=== PATIENT | female | born 1975 | race Caucasian/White ===

== ENCOUNTER → 2018-01-21 | Outpatient (CLI) | payer OTHER ==
--- NOTE | 2018-01-21 15:18 | Diagnostic Imaging Report ---
EXAMINATION: CHEST 2 VIEWS INDICATION: \[id number] \S\[id number] \S\LATENT TUBERCULOSIS COMPARISON: None FINDINGS: PA and lateral views TUBES and LINES: None. LUNGS: Lungs are well inflated. Lungs are clear. Tiny dense nodules in the perihilar region may represent calcified granulomas. There is no evidence of pneumonia or pulmonary edema. PLEURA: No pleural effusion or pneumothorax. HEART AND MEDIASTINUM: The cardiomediastinal silhouette is unremarkable. BONES AND SOFT TISSUES: Degenerative changes of the thoracic spine. Soft tissues are unremarkable. UPPER ABDOMEN: No free air under the diaphragm. IMPRESSION: No acute thoracic abnormality. Specifically, no radiographic findings to suggest active TB. Signed by: Dr. Kristen Hunter M.D. on 01/21/2018 3:14 PM
== END ==
LOC: RAD 10:37
PROVIDERS: ATTEND Family Medicine
DX: R76.11 Nonspecific reaction to tuberculin skin test without active tuberculosis (principal)
CPT/HCPCS: 71046

== ENCOUNTER → 2018-12-09 | Outpatient (CLI) | payer OTHER ==
[~2018-12-09] MED LIST: BIOTIN5 M1 PO; IRON PO; LEVOTHYROXINE50 MCG PO; LEXAPRO10 MG PO; MULTIVITAMIN PO; PANTOPRAZOLE SO40 MG PO; VITAMIN C PO; VITAMIN D3400 UNI1 PO; [UNRECOGNIZED DRUG - OTHER] PO; [UNRECOGNIZED DRUG - OTHER] PO
--- NOTE | 2018-12-09 11:42 | Diagnostic Imaging Report ---
EXAM: Right upper quadrant abdominal ultrasound INDICATION: Right upper quadrant pain COMPARISON: None. TECHNIQUE: Transverse and longitudinal images of the right upper quadrant abdomen were obtained FINDINGS: Liver: Size: 16.2 cm in the right midclavicular line, mildly enlarged Appearance: Normal echogenicity, smooth contour Mass: No focal masses Gallbladder: No gallbladder distension, pericholecystic fluid, wall thickening, stone, or reported sonographic Mueller's sign. Minimal amount of sludge in the gallbladder. Gallbladder wall measures 0.3 cm. Bile Ducts: Intrahepatic Ducts: No dilatation Extrahepatic Ducts: Common bile duct measures 0.3cm, no dilatation Pancreas: Visualized portions of the pancreatic head, neck and proximal body are normal. Kidney: The right kidney measures 9.8 cm without evidence of hydronephrosis or stone. Vessels: Aorta: Visualized portions are normal Inferior Vena Cava: Visualized portions are normal Main Portal Vein: 1.1 cm, normal size with hepatopetal flow. Free Fluid: No ascites or pleural effusion IMPRESSION: Minimal sludge in the gallbladder. No sonographic evidence of cholelithiasis or cholecystitis. Mild hepatomegaly. Signed by: Himanshu Tompkins MD on 12/09/2018 11:39 AM
== END ==
LOC: US 09:03
PROVIDERS: ATTEND Surgery
DX: R10.11 Right upper quadrant pain (principal); R16.0 Hepatomegaly, not elsewhere classified
CPT/HCPCS: 76705

== ENCOUNTER → 2018-12-16 | Outpatient (CLI) | payer OTHER ==
--- NOTE | 2018-12-16 17:07 | Diagnostic Imaging Report ---
Hepatobiliary Scan with Gallbladder Ejection Fraction Clinical information: Chronic abdominal pain Technique: Following intravenous administration of 7.0 millicuries of Tc-99m mebrofenin, dynamic images of the abdomen in the anterior projection were obtained through 30 minutes. Sincalide (CCK analog) 2.0 micrograms was administered intravenously over 30 minutes with additional imaging for determination of gallbladder ejection fraction. Discussion: Perfusion of the liver is normal. Extraction of tracer by the liver parenchyma is normal. Tracer appears promptly within the biliary tract. The gallbladder begins to fill by 8 minutes post injection of tracer and fills adequately. Tracer is seen in the small bowel by 16 minutes. The gallbladder ejection fraction with sincalide is 15% (normal greater than 40%). Impression: 1. Filling of the gallbladder excludes acute cystic duct obstruction/acute cholecystitis. 2. The decreased gallbladder ejection fraction of 15% supports the clinical diagnosis of chronic cholecystitis/gallbladder dyskinesia. Signed by: Dr. May Desai M.D. on 12/16/2018 5:04 PM
== END ==
LOC: NM 13:37
PROVIDERS: ATTEND Surgery
DX: R10.9 Unspecified abdominal pain (principal)
CPT/HCPCS: 78227; A9537

== ENCOUNTER → 2019-01-06 | Day surgery (SDC) | payer OTHER ==
[2018-12-30 15:19] LABS: BASOPHILS # (AUTO) 0.1 (0.0-0.1); BASOPHILS % 0.7 % (0.0-1.0); EOSINOPHILS # (AUTO) 0.1 (0.0-0.4); EOSINOPHILS % 1.7 % (0.0-6.0); HEMATOCRIT 36.9 % (34.2-44.1); HEMOGLOBIN 12.4 g/dL (12.0-16.0); LYMPHOCYTES # (AUTO) 2.2 (1.0-3.2); LYMPHOCYTES % 31.5 % (18.0-39.1); MEAN CORPUSCULAR HGB CONC 33.6 g/dL (31-35); MEAN CORPUSCULAR VOLUME 95.3 fL (81-99); MONOCYTES # (AUTO) 0.5 (0.2-0.8); MONOCYTES % 6.8 % (4.4-11.3); NEUTROPHILS # (AUTO) 4.2 (2.1-6.9); NEUTROPHILS % 59.2 % (38.7-80.0); PLATELET COUNT 263 x10e3/uL (140-360); RED BLOOD COUNT 3.87 x10e6/uL (3.6-5.1); RED CELL DISTRIBUTION WIDTH 12.3 % (11.7-14.4)
[2018-12-30 15:38] LABS: ALANINE AMINOTRANSFERASE 22 IU/L (0-55); ALBUMIN 4.1 g/dL (3.5-5.0); ALBUMIN/GLOBULIN RATIO 1.4 (0.8-2.0); ALKALINE PHOSPHATASE 37 IU/L (40-150); ANION GAP 10.8 mmol/L (8-16); BLOOD UREA NITROGEN 12 mg/dL (7-26); BUN/CREATININE RATIO 14 (6-25); CALCIUM 9.5 mg/dL (8.4-10.2); CARBON DIOXIDE 28 mmol/L (22-29); CHLORIDE 102 mmol/L (98-107); CREATININE, SERUM 0.84 mg/dL (0.57-1.11); EST GLOMERULAR FILTRATION RATE > 60 ML/MIN (60-); GLUCOSE 121 mg/dL (74-118); POTASSIUM 4.8 mmol/L (3.5-5.1); SODIUM 136 mmol/L (136-145)
[~2019-01-06] MED LIST changes: +ACETAMINOPHEN 1000 MG/100 ML IV ONE; +BUPIVACAINE HCL 0.5% INJ 30 ML VIAL INJ ONE; +CEFAZOLIN SOD 1 GM VIAL ONE; +DEXAMETHASONE SOD PHOS INJ 4 MG/ML VIAL ONE; +FENTANYL CITRATE/PF 100MCG/2 ML INJ ONE; +GLYCOPYRROLATE INJ 1MG/ 5 ML SYR ONE; +KETOROLAC TROMETHAMINE 30 MG/ML VIAL ONE; +LIDOCAINE HCL 2% LOCAL INJ 5 ML SDV VIAL INJ ONE; +METOCLOPRAMIDE HCL 10 MG/2ML VIAL ONE; +MIDAZOLAM HCL 2 MG/2 ML VIAL ONE; +NEOSTIGMINE 5 MG/5ML SYR ONE; +ONDANSETRON HCL INJ 2MG/ML 2ML 2 MG/ML VIAL ONE; +PROPOFOL IV EMULSION 10 MG/ML 20 ML VIAL ONE; +ROCURONIUM BROMIDE 10 MG/ML 5ML VIAL ONE; +SCOPOLAMINE 1.5 MG PATCH ONE; +SEVOFLURANE INHAL SOLN 250 ML PEN BTL ONE
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
--- OUTSIDE RECORDS SUMMARY | 2019-01-06 10:32 | XMS REPORT | Continuity of Care Document ---
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 Stop date: 05/15/16 8:55:00 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 NOT COMPATIBLE WITH D5W. Stable in refrigerator for 24 hours MEDICATION WASTE Product Size: 1000 mg Product Wasted: ___ mg No Longer Active 05/15/2016 [facility] FLUoxetine 20 mg oral tablet 20 mg=1 tab, PO, Daily, # 1 tab, 3 Refill(s), other Active 03/15/2016 [facility] Amlodipine 10 MG Oral Tablet amlodipine 10 mg tablet TAKE 1 TABLET BY MOUTH EVERY DAY Active [facility] Cyclobenzaprine hydrochloride 5 MG Oral Tablet cyclobenzaprine 5 mg tablet Take 1 tablet 3 times a day by oral route as needed for 5 days. Will cause drowsiness Active [facility] Fluoxetine 20 MG Oral Capsule fluoxetine 20 mg capsule TAKE 1 CAPSULE BY MOUTH EVERY DAY Active [facility] Fluoxetine 20 MG Oral Tablet fluoxetine 20 mg tablet TAKE 2 TABLETS BY MOUTH EVERY DAY Active [facility] Levothyroxine Sodium 0.15 MG Oral Tablet levothyroxine 150 mcg tablet TAKE 1 TABLET BY MOUTH EVERY DAY Active [facility] Levothyroxine Sodium 0.175 MG Oral Tablet levothyroxine 175 mcg tablet Active [facility] Medrol (Dariel) 4 mg tablets in a dose pack Medrol (Dariel) 4 mg tablets in a dose pack Take 1 dose pk by oral route with meals. Active [facility] pantoprazole 40 MG Delayed Release Oral Tablet pantoprazole 40 mg tablet,delayed release Active [facility] tramadol hydrochloride 50 MG Oral Tablet tramadol 50 mg tablet Active [facility] Ursodiol 300 MG Oral Capsule ursodiol 300 mg capsule Active [facility] 24 HR venlafaxine 75 MG Extended Release Oral Capsule venlafaxine ER 75 mg capsule,extended release 24 hr Active [facility] Allergies, Adverse Reactions, Alerts Substance Category Reaction Severity Reaction type Status Date Reported Comments Source No Known Medication Allergies Assertion Drug allergy Medical Group Immunizations No Data Provided for This Section Results Order Name Results Value Reference Range Date Interpretation Comments Source HEMATOLOGY POC Hematocrit 36.0 36.0 - 48.0 02/20/2017 [facility] HEMATOLOGY POC Potassium 4.9 3.5 - 5.1 02/20/2017 [facility] HEMATOLOGY POC Hemoglobin 12.2 12.0 - 16.0 02/20/2017 [facility] HEMATOLOGY POC Sodium 140 135 - 145 02/20/2017 [facility] HEMATOLOGY POC Glucose 87 70 - 99 02/20/2017 [facility] CHEM PANEL Globulin 2.4 2.7 - 4.2 12/06/2016 [facility] CHEM PANEL A/G Ratio 1.3 0.7 - 1.6 12/06/2016 [facility] CHEM PANEL AGAP 13.0 10.0 - 20.0 12/06/2016 [facility] CHEM PANEL B/C Ratio 8 6 - 25 12/06/2016 [facility] CHEM PANEL Bili Total 1.7 0.2 - 1.3 12/06/2016 [facility] CHEM PANEL Total Protein 5.5 6.4 - 8.4 12/06/2016 [facility] CHEM PANEL Alk Phos 44 39 - 136 12/06/2016 [facility] CHEM PANEL Chloride Lvl 110 95 - 109 12/06/2016 [facility] CHEM PANEL Calcium Lvl 8.0 8.5 - 10.5 12/06/2016 [facility] CHEM PANEL Potassium Lvl 4.0 3.5 - 5.1 12/06/2016 [facility] CHEM PANEL Sodium Lvl 145 135 - 145 12/06/2016 [facility] CHEM PANEL CO2 26 24 - 32 12/06/2016 [facility] CHEM PANEL BUN 6 7 - 22 12/06/2016 [facility] CHEM PANEL Albumin Lvl 3.1 3.5 - 5.0 12/06/2016 [facility] CHEM PANEL eGFR 93 12/06/2016 Result Comment: The eGFR is calculated using the CKD-EPI formula. In most young, healthy individuals the eGFR will be >90 mL/min/1.73m2. The eGFR declines with age. An eGFR of 60-89 may be normal in some populations, particularly the elderly, for whom the CKD-EPI formula has not been extensively validated. Use of the eGFR is not recommended in the following populations:

Individuals with unstable creatinine concentrations, including patients and those with serious co-morbid conditions.

Patients with extremes in muscle mass or diet.

The data above are obtained from the National Kidney Disease Education Program (NKDEP) which additionally recommends that when the eGFR is used in patients with extremes of body mass index for purposes of drug dosing, the eGFR should be multiplied by the estimated BMI. [facility] CHEM PANEL Glucose Lvl 93 70 - 99 12/06/2016 [facility] CHEM PANEL AST 10 0 - 37 12/06/2016 [facility] CHEM PANEL ALT 12 0 - 65 12/06/2016 [facility] CHEM PANEL Creatinine Lvl 0.79 0.50 - 1.40 12/06/2016 [facility] CHEM PANEL Magnesium Lvl 1.8 1.8 - 2.4 12/06/2016 [facility] CHEM PANEL Bili Direct 0.3 0.0 - 0.3 12/06/2016 [facility] ELECTROLYTES AGAP 13.0 10.0 - 20.0 12/06/2016 [facility] ELECTROLYTES Potassium Lvl 4.0 3.5 - 5.1 12/06/2016 [facility] ELECTROLYTES Calcium Lvl 8.0 8.5 - 10.5 12/06/2016 [facility] ELECTROLYTES CO2 26 24 - 32 12/06/2016 [facility] ELECTROLYTES BUN 6 7 - 22 12/06/2016 [facility] ELECTROLYTES Sodium Lvl 145 135 - 145 12/06/2016 [facility] ELECTROLYTES Chloride Lvl 110 95 - 109 12/06/2016 [facility] ELECTROLYTES eGFR 93 12/06/2016 Result Comment: The eGFR is calculated using the CKD-EPI formula. In most young, healthy individuals the eGFR will be >90 mL/min/1.73m2. The eGFR declines with age. An eGFR of 60-89 may be normal in some populations, particularly the elderly, for whom the CKD-EPI formula has not been extensively validated. Use of the eGFR is not recommended in the following populations:

Individuals with unstable creatinine concentrations, including patients and those with serious co-morbid conditions.

Patients with extremes in muscle mass or diet.

The data above are obtained from the National Kidney Disease Education Program (NKDEP) which additionally recommends that when the eGFR is used in patients with extremes of body mass index for purposes of drug dosing, the eGFR should be multiplied by the estimated BMI. [facility] ELECTROLYTES Glucose Lvl 93 70 - 99 12/06/2016 [facility] ELECTROLYTES Creatinine Lvl 0.79 0.50 - 1.40 12/06/2016 [facility] HEMATOLOGY WBC 5.5 3.7 - 10.4 12/06/2016 [facility] HEMATOLOGY MCH 31.4 27.0 - 31.0 12/06/2016 [facility] HEMATOLOGY RBC 3.19 4.20 - 5.40 12/06/2016 [facility] HEMATOLOGY MCV 88.6 80.0 - 98.0 12/06/2016 [facility] HEMATOLOGY Hct 28.2 36.0 - 48.0 12/06/2016 [facility] HEMATOLOGY Hgb 10.0 12.0 - 16.0 12/06/2016 [facility] MCHC 35.4 32.0 - 36.0 12/06/2016 [facility] HEMATOLOGY MPV 10.0 7.4 - 10.4 12/06/2016 [facility] HEMATOLOGY Platelet 190 133 - 450 12/06/2016 [facility] HEMATOLOGY RDW 13.9 11.5 - 14.5 12/06/2016 [facility] HEMATOLOGY Eosinophils 2.5 0.0 - 4.0 12/06/2016 [facility] Monocytes 5.8 2.0 - 12.0 12/06/2016 [facility] Lymphocytes 35.8 20.0 - 40.0 12/06/2016 [facility] Segs 54.8 45.0 - 75.0 12/06/2016 [facility] Basophils 1.1 0.0 - 1.0 12/06/2016 [facility] HEMATOLOGY Eosinophils # 0.1 0.0 - 0.5 12/06/2016 [facility] HEMATOLOGY Monocytes # 0.3 0.0 - 0.8 12/06/2016 [facility] Lymphocytes # 2.0 1.0 - 5.5 12/06/2016 [facility] HEMATOLOGY Basophils # 0.1 0.0 - 0.2 12/06/2016 [facility] Segs-Bands # 3.0 1.5 - 8.1 12/06/2016 [facility] HEMATOLOGY Platelet 177 133 - 450 12/06/2016 [facility] HEMATOLOGY MPV 10.1 7.4 - 10.4 12/06/2016 [facility] MCHC 34.3 32.0 - 36.0 12/06/2016 [facility] HEMATOLOGY RDW 14.0 11.5 - 14.5 12/06/2016 [facility] HEMATOLOGY MCH 30.4 27.0 - 31.0 12/06/2016 [facility] HEMATOLOGY MCV 88.4 80.0 - 98.0 12/06/2016 [facility] HEMATOLOGY Hgb 9.6 12.0 - 16.0 12/06/2016 [facility] HEMATOLOGY Hct 27.9 36.0 - 48.0 12/06/2016 [facility] HEMATOLOGY WBC 6.2 3.7 - 10.4 12/06/2016 [facility] HEMATOLOGY RBC 3.15 4.20 - 5.40 12/06/2016 [facility] HEMATOLOGY Monocytes # 0.4 0.0 - 0.8 12/06/2016 [facility] HEMATOLOGY Segs-Bands # 2.9 1.5 - 8.1 12/06/2016 [facility] HEMATOLOGY Lymphocytes # 2.8 1.0 - 5.5 12/06/2016 [facility] HEMATOLOGY Eosinophils 2.6 0.0 - 4.0 12/06/2016 [facility] HEMATOLOGY Basophils 0.9 0.0 - 1.0 12/06/2016 [facility] HEMATOLOGY Monocytes 6.3 2.0 - 12.0 12/06/2016 [facility] Eosinophils # 0.2 0.0 - 0.5 12/06/2016 [facility] Basophils # 0.1 0.0 - 0.2 12/06/2016 [facility] HEMATOLOGY Segs 45.6 45.0 - 75.0 12/06/2016 [facility] Lymphocytes 44.6 20.0 - 40.0 12/06/2016 [facility] HEMATOLOGY Hgb 9.6 12.0 - 16.0 12/05/2016 [facility] HEMATOLOGY Hct 27.8 36.0 - 48.0 12/05/2016 [facility] CHEM PANEL Magnesium Lvl 2.1 1.8 - 2.4 12/05/2016 [facility] BLOOD BANK RESULTS Antibody Scrn Negative (12/05/16 1:44 AM) 12/05/2016 [facility] BLOOD BANK RESULTS ABO/Rh A POS 12/05/2016 [facility] BLOOD BANK RESULTS RBC product Product available 1 (12/05/16 1:26 AM) 12/05/2016 Result Comment: 12/05/2016 02:36 [id number]
NOTIFIED GLENDY HAIDER, RBC READY [facility] CHEM PANEL eGFR 116 12/05/2016 Result Comment: The eGFR is calculated using the CKD-EPI formula. In most young, healthy individuals the eGFR will be >90 mL/min/1.73m2. The eGFR declines with age. An eGFR of 60-89 may be normal in some populations, particularly the elderly, for whom the CKD-EPI formula has not been extensively validated. Use of the eGFR is not recommended in the following populations:

Individuals with unstable creatinine concentrations, including patients and those with serious co-morbid conditions.

Patients with extremes in muscle mass or diet.

The data above are obtained from the National Kidney Disease Education Program (NKDEP) which additionally recommends that when the eGFR is used in patients with extremes of body mass index for purposes of drug dosing, the eGFR should be multiplied by the estimated BMI. [facility] CHEM PANEL Glucose Lvl 85 70 - 99 12/05/2016 [facility] CHEM PANEL Sodium Lvl 147 135 - 145 12/05/2016 [facility] CHEM PANEL Potassium Lvl 3.3 3.5 - 5.1 12/05/2016 [facility] CHEM PANEL BUN 14 7 - 22 12/05/2016 [facility] CHEM PANEL Creatinine Lvl 0.56 0.50 - 1.40 12/05/2016 [facility] CHEM PANEL Calcium Lvl 6.6 8.5 - 10.5 12/05/2016 Result Comment: Critical Result(s) called to siva at 12/05/2016 01:39 by pks. Read back OK. [facility] CHEM PANEL Chloride Lvl 117 95 - 109 12/05/2016 [facility] CHEM PANEL CO2 22 24 - 32 12/05/2016 [facility] CHEM PANEL AGAP 11.3 10.0 - 20.0 12/05/2016 [facility] HEMATOLOGY Platelet 153 133 - 450 12/05/2016 [facility] HEMATOLOGY MPV 10.2 7.4 - 10.4 12/05/2016 [facility] HEMATOLOGY RDW 13.7 11.5 - 14.5 12/05/2016 [facility] HEMATOLOGY MCH 30.8 27.0 - 31.0 12/05/2016 [facility] HEMATOLOGY MCHC 34.4 32.0 - 36.0 12/05/2016 [facility] HEMATOLOGY MCV 89.5 80.0 - 98.0 12/05/2016 [facility] HEMATOLOGY RBC 2.31 4.20 - 5.40 12/05/2016 [facility] HEMATOLOGY WBC 6.1 3.7 - 10.4 12/05/2016 [facility] HEMATOLOGY Lymphocytes # 2.2 1.0 - 5.5 12/05/2016 [facility] HEMATOLOGY Monocytes # 0.3 0.0 - 0.8 12/05/2016 [facility] HEMATOLOGY Basophils 0.5 0.0 - 1.0 12/05/2016 [facility] HEMATOLOGY Segs-Bands # 3.4 1.5 - 8.1 12/05/2016 [facility] HEMATOLOGY Eosinophils # 0.1 0.0 - 0.5 12/05/2016 [facility] HEMATOLOGY Monocytes 4.5 2.0 - 12.0 12/05/2016 [facility] HEMATOLOGY Eosinophils 1.6 0.0 - 4.0 12/05/2016 [facility] HEMATOLOGY Segs 56.5 45.0 - 75.0 12/05/2016 [facility] HEMATOLOGY Lymphocytes 36.9 20.0 - 40.0 12/05/2016 [facility] HEMATOLOGY Hgb 8.6 12.0 - 16.0 12/05/2016 [facility] HEMATOLOGY Hct 25.0 36.0 - 48.0 12/05/2016 [facility] BLOOD BANK RESULTS RBC product Product available 1 (12/04/16 11:11 AM) 12/04/2016 Result Comment: 12/04/2016 11:16 MABUNING
Called to DALIA at 12/04/2016 11:16 by CECELIA. [facility] BLOOD BANK RESULTS ABO/Rh A POS 12/04/2016 [facility] BLOOD BANK RESULTS Antibody Scrn Negative (12/04/16 10:15 AM) 12/04/2016 [facility] URINE AND STOOL Occult Bld Stl Positive *ABN* (12/04/16 10:01 AM) Negative 12/04/2016 [facility] CARDIAC ENZYMES CK MB <1.0 0.5 - 3.6 12/04/2016 [facility] CARDIAC ENZYMES Total CK 60 12 - 191 12/04/2016 [facility] CARDIAC ENZYMES Troponin-I <0.02 0.00 - 0.40 12/04/2016 [facility] CARDIAC ENZYMES CK MB Index <1.7 0.0 - 2.5 12/04/2016 [facility] CHEM PANEL eGFR 94 12/04/2016 Result Comment: The eGFR is calculated using the CKD-EPI formula. In most young, healthy individuals the eGFR will be >90 mL/min/1.73m2. The eGFR declines with age. An eGFR of 60-89 may be normal in some populations, particularly the elderly, for whom the CKD-EPI formula has not been extensively validated. Use of the eGFR is not recommended in the following populations:

Individuals with unstable creatinine concentrations, including patients and those with serious co-morbid conditions.

Patients with extremes in muscle mass or diet.

The data above are obtained from the National Kidney Disease Education Program (NKDEP) which additionally recommends that when the eGFR is used in patients with extremes of body mass index for purposes of drug dosing, the eGFR should be multiplied by the estimated BMI. [facility] CHEM PANEL A/G Ratio 1.1 0.7 - 1.6 12/04/2016 [facility] CHEM PANEL Globulin 2.6 2.7 - 4.2 12/04/2016 [facility] CHEM PANEL B/C Ratio 33 6 - 25 12/04/2016 [facility] CHEM PANEL AGAP 12.4 10.0 - 20.0 12/04/2016 [facility] CHEM PANEL Alk Phos 36 39 - 136 12/04/2016 [facility] CHEM PANEL Bili Total 0.6 0.2 - 1.3 12/04/2016 [facility] CHEM PANEL Potassium Lvl 4.4 3.5 - 5.1 12/04/2016 [facility] CHEM PANEL BUN 26 7 - 22 12/04/2016 [facility] CHEM PANEL Creatinine Lvl 0.78 0.50 - 1.40 12/04/2016 [facility] CHEM PANEL Glucose Lvl 131 70 - 99 12/04/2016 [facility] CHEM PANEL Sodium Lvl 143 135 - 145 12/04/2016 [facility] CHEM PANEL CO2 22 24 - 32 12/04/2016 [facility] CHEM PANEL Chloride Lvl 113 95 - 109 12/04/2016 [facility] CHEM PANEL Total Protein 5.5 6.4 - 8.4 12/04/2016 [facility] CHEM PANEL Calcium Lvl 7.7 8.5 - 10.5 12/04/2016 [facility] CHEM PANEL Albumin Lvl 2.9 3.5 - 5.0 12/04/2016 [facility] CHEM PANEL ALT 13 0 - 65 12/04/2016 [facility] CHEM PANEL AST 16 0 - 37 12/04/2016 [facility] CHEM PANEL Lipase Lvl 182 73 - 393 12/04/2016 [facility] CHEM PANEL Magnesium Lvl 1.7 1.8 - 2.4 12/04/2016 [facility] ENDOCRINOLOGY S Preg Negative *NA* (12/04/16 9:34 AM) Negative 12/04/2016 [facility] HEMATOLOGY Eosinophils # 0.1 0.0 - 0.5 12/04/2016 [facility] HEMATOLOGY Monocytes # 0.3 0.0 - 0.8 12/04/2016 [facility] HEMATOLOGY Segs-Bands # 3.2 1.5 - 8.1 12/04/2016 [facility] HEMATOLOGY Basophils 0.7 0.0 - 1.0 12/04/2016 [facility] HEMATOLOGY Lymphocytes # 1.6 1.0 - 5.5 12/04/2016 [facility] HEMATOLOGY Segs 61.2 45.0 - 75.0 12/04/2016 [facility] HEMATOLOGY Monocytes 5.7 2.0 - 12.0 12/04/2016 [facility] HEMATOLOGY Lymphocytes 31.0 20.0 - 40.0 12/04/2016 [facility] HEMATOLOGY Eosinophils 1.4 0.0 - 4.0 12/04/2016 [facility] HEMATOLOGY Hct 23.9 36.0 - 48.0 12/04/2016 [facility] RBC 2.71 4.20 - 5.40 12/04/2016 [facility] WBC 5.2 3.7 - 10.4 12/04/2016 [facility] Hgb 8.2 12.0 - 16.0 12/04/2016 [facility] MCHC 34.2 32.0 - 36.0 12/04/2016 [facility] MCV 88.2 80.0 - 98.0 12/04/2016 [facility] MCH 30.2 27.0 - 31.0 12/04/2016 [facility] RDW 13.5 11.5 - 14.5 12/04/2016 [facility] Platelet 211 133 - 450 12/04/2016 [facility] MPV 10.2 7.4 - 10.4 12/04/2016 [facility] PTT 25.2 22.9 - 35.8 12/04/2016 [facility] HEMATOLOGY PT 15.1 12.0 - 14.7 12/04/2016 [facility] HEMATOLOGY INR 1.17 0.85 - 1.17 12/04/2016 [facility] CHEM PANEL eGFR 95 05/16/2016 Result Comment: The eGFR is calculated using the CKD-EPI formula. In most young, healthy individuals the eGFR will be >90 mL/min/1.73m2. The eGFR declines with age. An eGFR of 60-89 may be normal in some populations, particularly the elderly, for whom the CKD-EPI formula has not been extensively validated. Use of the eGFR is not recommended in the following populations:

Individuals with unstable creatinine concentrations, including patients and those with serious co-morbid conditions.

Patients with extremes in muscle mass or diet.

The data above are obtained from the National Kidney Disease Education Program (NKDEP) which additionally recommends that when the eGFR is used in patients with extremes of body mass index for purposes of drug dosing, the eGFR should be multiplied by the estimated BMI. [facility] CHEM PANEL Glucose Lvl 96 70 - 99 05/16/2016 [facility] CHEM PANEL Creatinine Lvl 0.78 0.50 - 1.40 05/16/2016 [facility] CHEM PANEL Sodium Lvl 138 135 - 145 05/16/2016 [facility] CHEM PANEL Potassium Lvl 4.9 3.5 - 5.1 05/16/2016 [facility] CHEM PANEL Chloride Lvl 104 95 - 109 05/16/2016 [facility] CHEM PANEL CO2 22 24 - 32 05/16/2016 [facility] CHEM PANEL AGAP 16.9 10.0 - 20.0 05/16/2016 [facility] CHEM PANEL Calcium Lvl 8.2 8.5 - 10.5 05/16/2016 [facility] CHEM PANEL BUN 9 7 - 22 05/16/2016 [facility] HEMATOLOGY Basophils 0.1 0.0 - 1.0 05/16/2016 [facility] HEMATOLOGY Monocytes 5.7 2.0 - 12.0 05/16/2016 [facility] HEMATOLOGY Segs-Bands # 13.2 1.5 - 8.1 05/16/2016 [facility] HEMATOLOGY Lymphocytes # 1.2 1.0 - 5.5 05/16/2016 [facility] HEMATOLOGY Monocytes # 0.9 0.0 - 0.8 05/16/2016 [facility] HEMATOLOGY RBC Morph Normal (05/16/16 4:47 AM) 05/16/2016 [facility] HEMATOLOGY Plt Morph Normal (05/16/16 4:47 AM) 05/16/2016 [facility] HEMATOLOGY Segs 86.4 45.0 - 75.0 05/16/2016 [facility] HEMATOLOGY Lymphocytes 7.8 20.0 - 40.0 05/16/2016 [facility] HEMATOLOGY MCV 84.5 80.0 - 98.0 05/16/2016 [facility] HEMATOLOGY MCH 28.3 27.0 - 31.0 05/16/2016 [facility] HEMATOLOGY Hct 35.9 36.0 - 48.0 05/16/2016 [facility] HEMATOLOGY MCHC 33.5 32.0 - 36.0 05/16/2016 [facility] [facility] [place] HEMATOLOGY Hgb 12.0 12.0 - 16.0 05/16/2016 [facility] [place] HEMATOLOGY RDW 13.3 11.5 - 14.5 05/16/2016 [facility] [place] HEMATOLOGY WBC 15.2 3.7 - 10.4 05/16/2016 [facility] [place] HEMATOLOGY RBC 4.24 4.20 - 5.40 05/16/2016 [facility] [place] HEMATOLOGY MPV 9.6 7.4 - 10.4 05/16/2016 [facility] [place] HEMATOLOGY Platelet 247 133 - 450 05/16/2016 [facility] [place] BLOOD BANK RESULTS Antibody Scrn Negative (05/15/16 7:20 AM) 05/15/2016 [facility] [place] BLOOD BANK RESULTS ABO/Rh A POS 05/15/2016 [facility] [place] CHEM PANEL Vitamin D, 25-OH, Total <13 30 - 100 05/15/2016 [facility] [place] CHEM PANEL VITAMIN B1 (THIAMINE) WHOLE BLOOD 108.9 66.5 - 200.0 05/15/2016 Result Comment: Performed At: [facility] (formerly [facility])
[address] [place] [id number]
Nadia Lyle MD Ph:[phone] [facility] [place] CHEM PANEL Globulin 3.7 2.7 - 4.2 05/15/2016 [facility] [place] CHEM PANEL A/G Ratio 1.2 0.7 - 1.6 05/15/2016 [facility] [place] CHEM PANEL B/C Ratio 14 6 - 25 05/15/2016 [facility] [place] CHEM PANEL AGAP 13.7 10.0 - 20.0 05/15/2016 [facility] [place] CHEM PANEL Potassium Lvl 3.7 3.5 - 5.1 05/15/2016 [facility] [place] CHEM PANEL Chloride Lvl 104 95 - 109 05/15/2016 [facility] [place] CHEM PANEL Sodium Lvl 139 135 - 145 05/15/2016 [facility] [place] CHEM PANEL Bili Total 1.4 0.2 - 1.3 05/15/2016 [facility] [place] CHEM PANEL Alk Phos 72 39 - 136 05/15/2016 [facility] [place] CHEM PANEL Total Protein 8.0 6.4 - 8.4 05/15/2016 [facility] [place] CHEM PANEL eGFR 69 05/15/2016 Result Comment: The eGFR is calculated using the CKD-EPI formula. In most young, healthy individuals the eGFR will be >90 mL/min/1.73m2. The eGFR declines with age. An eGFR of 60-89 may be normal in some populations, particularly the elderly, for whom the CKD-EPI formula has not been extensively validated. Use of the eGFR is not recommended in the following populations:

Individuals with unstable creatinine concentrations, including patients and those with serious co-morbid conditions.

Patients with extremes in muscle mass or diet.

The data above are obtained from the National Kidney Disease Education Program (NKDEP) which additionally recommends that when the eGFR is used in patients with extremes of body mass index for purposes of drug dosing, the eGFR should be multiplied by the estimated BMI. [facility] [place] CHEM PANEL CO2 25 24 - 32 05/15/2016 [facility] [place] CHEM PANEL AST 17 0 - 37 05/15/2016 [facility] [place] CHEM PANEL ALT 32 0 - 65 05/15/2016 [facility] [place] CHEM PANEL Creatinine Lvl 1.01 0.50 - 1.40 05/15/2016 [facility] [place] CHEM PANEL Albumin Lvl 4.3 3.5 - 5.0 05/15/2016 [facility] [place] CHEM PANEL Calcium Lvl 8.8 8.5 - 10.5 05/15/2016 [facility] [place] CHEM PANEL BUN 14 7 - 22 05/15/2016 [facility] [place] CHEM PANEL Glucose Lvl 89 70 - 99 05/15/2016 [facility] [place] HEMATOLOGY INR 1.06 0.85 - 1.17 05/15/2016 [facility] [place] HEMATOLOGY PT 14.0 12.0 - 14.7 05/15/2016 [facility] [place] HEMATOLOGY PTT 32.6 22.9 - 35.8 05/15/2016 [facility] [place] HEMATOLOGY Eosinophils # 0.1 0.0 - 0.5 05/15/2016 [facility] [place] HEMATOLOGY Basophils # 0.1 0.0 - 0.2 05/15/2016 [facility] [place] HEMATOLOGY Monocytes # 0.6 0.0 - 0.8 05/15/2016 [facility] [place] HEMATOLOGY Lymphocytes # 1.9 1.0 - 5.5 05/15/2016 [facility] [place] HEMATOLOGY Segs-Bands # 5.4 1.5 - 8.1 05/15/2016 [facility] [place] HEMATOLOGY Eosinophils 1.7 0.0 - 4.0 05/15/2016 [facility] [place] HEMATOLOGY Basophils 1.0 0.0 - 1.0 05/15/2016 [facility] [place] HEMATOLOGY Lymphocytes 23.3 20.0 - 40.0 05/15/2016 [facility] [place] HEMATOLOGY Monocytes 8.0 2.0 - 12.0 05/15/2016 [facility] [place] HEMATOLOGY Segs 66.0 45.0 - 75.0 05/15/2016 [facility] [place] HEMATOLOGY RDW 13.5 11.5 - 14.5 05/15/2016 [facility] [place] HEMATOLOGY MCHC 33.3 32.0 - 36.0 05/15/2016 [facility] [place] HEMATOLOGY RBC 4.71 4.20 - 5.40 05/15/2016 [facility] [place] HEMATOLOGY MPV 9.8 7.4 - 10.4 05/15/2016 [facility] [place] HEMATOLOGY Platelet 264 133 - 450 05/15/2016 [facility] [place] HEMATOLOGY WBC 8.1 3.7 - 10.4 05/15/2016 [facility] [place] HEMATOLOGY MCV 86.1 80.0 - 98.0 05/15/2016 [facility] [place] HEMATOLOGY MCH 28.7 27.0 - 31.0 05/15/2016 [facility] [place] HEMATOLOGY Hgb 13.5 12.0 - 16.0 05/15/2016 [facility] [place] HEMATOLOGY Hct 40.6 36.0 - 48.0 05/15/2016 [facility] [place] PARATHYROID PROFILE PTH Intact 169.0 11.1 - 79.5 05/15/2016 [facility] [place] BLOOD BANK RESULTS RBC product Product available (05/15/16 6:00 AM) 05/15/2016 [facility] [place] Pathology Reports No Data Provided for This Section Diagnostic Reports Report Value Date Source ED Abdomen/Pelvis IV contrast only CT Clinical Indication: Abdominal pain with nausea, vomiting, bloody stools Comparison: None TECHNIQUE: Helical imaging was performed after injection of IV contrast, from the diaphragm through the symphysis with multiplanar reformations obtained. IV CONTRAST: 100 mL of Omnipaque GI CONTRAST: No oral contrast was administered. DLP: 936.72 mGy-cm FINDINGS: LOWER CHEST: The lung bases are clear. LIVER: The liver parenchyma is normal in appearance without masses or intrahepatic biliary ductal dilatation. The portal vein is normal in caliber. BILIARY TREE: The common bile duct is normal in caliber without evidence of filling defects. GALLBLADDER: The gallbladder is unremarkable, there is no evidence of cholelithiasis or cholecystitis. PANCREAS: The pancreas is unremarkable. The pancreatic duct is normal in caliber. SPLEEN: The spleen is normal in size and there are no parenchymal abnormalities. ADRENALS: There is a right adrenal nodule which is indeterminate and measures 1.6 x 1.5 cm in size. The left adrenal gland is unremarkable. KIDNEYS: The kidneys demonstrates normal contrast enhancement. There are no masses. There is no evidence of renal or ureteral calculi. There is no evidence of hydronephrosis. BOWEL: The visualized portion of the esophagus is unremarkable. 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 The small bowel is normal in caliber and there is no evidence of masses or obstruction. The colon is normal in caliber, there are no masses, there is no evidence of diverticulosis or diverticulitis. APPENDIX: The appendix is unremarkable. PELVIS: There are no pelvic masses. The urinary bladder is unremarkable. The uterus and ovaries are unremarkable. PERITONEUM: There is no evidence for free intraperitoneal fluid or air. SOFT TISSUES: There is a small fat-containing umbilical hernia. LYMPH NODES: There is no evidence of mesenteric, retroperitoneal, or inguinal lymphadenopathy. VASCULATURE: The abdominal aorta is normal in caliber. The branches of the abdominal aorta are widely patent. MUSCULOSKELETAL: There is moderate narrowing of the L2-L3 and L4-5 disc spaces. IMPRESSION: 1. No acute intra-abdominal findings. 2. Small fat-containing umbilical hernia. 3. Indeterminate right adrenal nodule. 4. Changes of prior gastric bypass surgery. SL: [id number] 12/04/2016 [facility] Chest 1view DX Compared to 03/15/2013, mild cardiomegaly is present. The lungs appear clear. IMPRESSION: 1. Mild cardiomegaly. 2. Clear lungs. 05/15/2016 [facility] [place] Consultation Notes No Data Provided for This Section Discharge Summaries No Data Provided for This Section History and Physicals No Data Provided for This Section Vital Signs Vital Sign Value Date Comments Source Heart Rate 76 05/07/2018 [facility] Systolic (mm Hg) 139 05/07/2018 [facility] Diastolic (mm Hg) 90 05/07/2018 [facility] BMI Calculated 34.89 05/07/2018 [facility] Weight 99.545 05/07/2018 [facility] Height 168.91 cm 05/07/2018 [facility] Heart Rate 73 05/07/2018 [facility] Temperature Oral (F) 98.9 F 05/07/2018 [facility] Systolic (mm Hg) 151 05/07/2018 [facility] Diastolic (mm Hg) 104 05/07/2018 [facility] BMI Calculated 32.02 08/28/2017 [facility] [place] Weight 90 08/28/2017 [facility] [place] Height 167.64 cm 08/28/2017 [facility] [place] Weight 86.364 02/20/2017 [facility] [place] BMI Calculated 30.73 02/20/2017 [facility] [place] Height 167.64 cm 02/20/2017 [facility] [place] Systolic (mm Hg) 120 12/06/2016 [facility] [place] Diastolic (mm Hg) 78 12/06/2016 [facility] [place] Temperature Oral (F) 98.4 F 12/06/2016 [facility] [place] Respitory Rate 18 12/06/2016 [facility] [place] Heart Rate 65 12/06/2016 [facility] [place] Temperature Oral (F) 98.1 F 12/06/2016 [facility] [place] Heart Rate 59 12/06/2016 [facility] [place] Respitory Rate 18 12/06/2016 [facility] [place] Systolic (mm Hg) 113 12/06/2016 [facility] [place] Diastolic (mm Hg) 72 12/06/2016 [facility] [place] Respitory Rate 17 12/06/2016 [facility] [place] Systolic (mm Hg) 100 12/06/2016 [facility] [place] Diastolic (mm Hg) 65 12/06/2016 [facility] [place] Heart Rate 60 12/06/2016 [facility] [place] Temperature Oral (F) 98.4 F 12/06/2016 [facility] [place] Weight 95 12/05/2016 [facility] [place] BMI Calculated 33.8 12/05/2016 [facility] [place] Height 167.64 cm 12/05/2016 [facility] [place] Heart Rate 83 12/05/2016 [facility] Rate 18 12/05/2016 [facility] Systolic (mm Hg) 114 12/05/2016 [facility] Diastolic (mm Hg) 67 12/05/2016 [facility] Temperature Oral (F) 98.3 F 12/05/2016 [facility] Systolic (mm Hg) 116 12/05/2016 [facility] Diastolic (mm Hg) 71 12/05/2016 [facility] Respitory Rate 18 12/05/2016 [facility] Temperature Oral (F) 98.0 F 12/05/2016 [facility] Heart Rate 67 12/05/2016 [facility] BMI Calculated 32.89 12/04/2016 [facility] Weight 92.443 12/04/2016 [facility] Height 167.64 cm 12/04/2016 [facility] Heart Rate 78 12/04/2016 [facility] Respitory Rate 18 12/04/2016 [facility] Systolic (mm Hg) 127 12/04/2016 [facility] Diastolic (mm Hg) 84 12/04/2016 [facility] Temperature Oral (F) 98.2 F 12/04/2016 [facility] Weight 88.636 12/04/2016 [facility] Height 165.1 cm 12/04/2016 [facility] BMI Calculated 32.52 12/04/2016 [facility] Diastolic (mm Hg) 70 10/21/2016 [facility] Height 66 10/21/2016 [facility] Systolic (mm Hg) 98 10/21/2016 [facility] Weight 215 10/21/2016 [facility] Systolic (mm Hg) 113 05/17/2016 [facility] [place] Diastolic (mm Hg) 75 05/17/2016 [facility] [place] Temperature Oral (F) 97.8 F 05/17/2016 [facility] [place] Heart Rate 74 05/17/2016 [facility] [place] Respitory Rate 20 05/17/2016 [facility] [place] Systolic (mm Hg) 112 05/17/2016 [facility] [place] Diastolic (mm Hg) 70 05/17/2016 [facility] [place] Respitory Rate 18 05/17/2016 [facility] [place] Temperature Oral (F) 98.2 F 05/17/2016 [facility] [place] Heart Rate 73 05/17/2016 [facility] [place] Systolic (mm Hg) 116 05/17/2016 [facility] [place] Diastolic (mm Hg) 59 05/17/2016 [facility] [place] Respitory Rate 18 05/17/2016 [facility] [place] Temperature Oral (F) 98.2 F 05/17/2016 [facility] [place] Heart Rate 68 05/17/2016 [facility] [place] Weight 122.727 05/13/2016 [facility] [place] Height 168.91 cm 05/13/2016 [facility] [place] BMI Calculated 43.02 05/13/2016 [facility] [place] Encounters Location Location Details Encounter Type Encounter Number Reason For Visit Attending Provider ADM Date DC Date Status Source [facility] Inpatient [id number] Jeremiah Palma 05/15/2016 05/17/2016 [facility] - [id number] Christina Hagen, GUT DROPPER: [address], [place] [address], Ph. [id number] Christina Xiao 10/21/2016 [facility] Inpatient [id number] Ander Nathaniel Silva 12/04/2016 12/05/2016 [facility] Inpatient [id number] Rosmery Lymanpen 12/05/2016 12/06/2016 [facility] [place] Outpatient [id number] SEEMA BRISENO 01/01/[address] [facility] Bedded Outpatient [id number] Snow Barton 02/20/2017 02/20/2017 [facility] Primary Care Teto Phone Message [id number] 07/21/2017 07/23/2017 Medical [facility] Primary Care Teto Phone Message [id number] 07/23/2017 07/25/2017 [facility] Bedded Outpatient [id number] Dustin Zaragoza 08/28/2017 08/28/2017 [facility] Primary Care [place] Outside Medical Records [id number] 02/02/2018 02/04/2018 Medical [facility] Outpatient [id number] SEEMA BRISENO 05/07/2018 [facility] Primary Care [place] Outpatient [id number] Seema Briseno 05/07/2018 05/08/2018 Medical [facility] Primary Care [place] Between Visit [id number] 11/01/2018 11/02/2018 Medical Group [facility] Primary Care [place] Between Visit [id number] 11/01/2018 11/02/2018 Medical Group [facility] Primary Care [place] Between Visit [id number] 12/10/2018 12/11/2018 [facility] Procedures Procedure Code Date Perfomer Comments Source Silvia-en-y gastric bypass [id number] 05/11/2016 [facility] [place] Gastric Bypass [facility] Anesth Knee Area Surgery [facility] Delivery [facility] Hysterectomy [facility] Tonsillectomy [facility] Arthroscopy of knee [id number] [facility] [place] section [id number] Medical Group,[facility] [place] I131 therapy [id number] [facility] [place] Partial hysterectomy [id number] Medical Group,[facility] [place] tooth [id number] Medical [facility] Assessment and Plan Assessment and Plan Date Source Extracted from:Title: Clinical Document Author: Dustin Zaragoza MD Date: 12/06/16 Progress Note - Daily [facility] Completed: Nov, 11:01 by Dustin Zaragoza MD RM: 510 - 00, J5EA KRIS KENYON Mars 41y (: 1975) F Attending: Rosmery Luna MD Service: Internal Medicine Reason for Admission: SYNCOPE Working DRG: Syncope and collapse Code status: None Specified=FULL CODE Current diet: Isolation: None Documented Allergies: NKDA SUBJECTIVE/ OBJECTIVE No events. Tolerating diet. Pain controlled. Ambulating well 24hr Labs 12/06 0750 Glucose Lvl 93 BUN 6 L Creatinine Lvl 0.79 Sodium Lvl 145 Potassium Lvl 4.0 Chloride Lvl 110 H CO2 26 AGAP 13.0 Calcium Lvl 8.0 L eGFR 93 Sodium Lvl 145 Potassium Lvl 4.0 Chloride Lvl 110 H CO2 26 AGAP 13.0 Glucose Lvl 93 Creatinine Lvl 0.79 BUN 6 L B/C Ratio 8 Total Protein 5.5 L Albumin Lvl 3.1 L Globulin 2.4 L A/G Ratio 1.3 Calcium Lvl 8.0 L ALT 12 AST 10 Alk Phos 44 Bili Total 1.7 H eGFR 93 Bili Direct 0.3 Magnesium Lvl 1.8 WBC 5.5 RBC 3.19 L Hgb 10.0 L Hct 28.2 L MCV 88.6 MCH 31.4 H MCHC 35.4 RDW 13.9 Platelet 190 MPV 10.0 Segs 54.8 Monocytes 5.8 Lymphocytes 35.8 Eosinophils 2.5 Basophils 1.1 H Segs-Bands # 3.0 Lymphocytes # 2.0 Monocytes # 0.3 Eosinophils # 0.1 Basophils # 0.1 12/06 2047 WBC 6.2 RBC 3.15 L Hgb 9.6 L Hct 27.9 L MCV 88.4 MCH 30.4 MCHC 34.3 RDW 14.0 Platelet 177 MPV 10.1 Segs 45.6 Monocytes 6.3 Lymphocytes 44.6 H Eosinophils 2.6 Basophils 0.9 Segs-Bands # 2.9 Lymphocytes # 2.8 Monocytes # 0.4 Eosinophils # 0.2 Basophils # 0.1 12/05 1449 Hgb 9.6 L Hct 27.8 L Bustos still necessary (Yes/No): Line still necessary (Yes/No): Vitals Tmp(F) Pulse BP RR SpO2 FIO2 12/06 07: 98.1 59 113/72 18 98 --- 12/06 04:00 98.4 60 100/65 17 99 --- 12/06 00:00 97.8 66 109/64 17 97 --- 12/05 20:00 98.5 58 110/69 16 100 --- 12/05 18:45 ---- 54 118/75 20 --- --- 24 Hr Tmax: 98.5F (36.94c) at 12/05 20:00 Vital Signs are the last 5 in the past 48 hours. Date Wt(kg) Wt(lb) Ht(cm) Ht(in) Method 12/04 (initial) 95.00 209.00 Measured 12/04 167.64 66.00 Stated I&O Record In Out Bal 12/06 24hr Tot 10 0 10 12/05 24hr Tot 1225 [id number] -8162 Medications (11) Active Scheduled Meds (3): 12/05/16 FLUoxetine (PROzac) 20 mg PO Daily 12/05/16 levothyroxine (Levothroid) 175 microgram PO Q630AM 12/05/16 sucralfate (Carafate 1 g/10 mL oral suspension) 1 gm PO BID Unscheduled Meds: None PRN Meds (4): 12/05/16 acetaminophen-hydrocodone (acetaminophen-hydrocodone 325 mg-5 mg oral tablet) 1 tab PO Q4H 12/05/16 acetaminophen (acetaminophen 325 mg oral tablet) 650 mg PO Q4H 12/05/16 morphine Sulfate 2 mg IVP Q4H 12/05/16 ondansetron 4 mg IVP Q6H One Time Meds (2): 12/05/16 (Completed) calcium gluconate + sodium chloride 0.9% INJ 100 mL 2,000 mg IVPB ONCE 240 ml/hr 12/05/16 (Completed) potassium chloride 20 mEq + lidocaine 2 mL + sodium chloride 0.9% INJ 250 mL 20 mEq IV ONCE 65.5 ml/hr Continuous Infusions (2): 12/05/16 pantoprazole 80 mg + sodium chloride 0.9% 100 mL INJ (for IV set) 100 mL 100 mL 10 ml/hr 12/05/16 sodium chloride 0.45% 1000 ml INJ 1,000 mL 1,000 mL 100 ml/hr ASSESSMENT and EXAM NAD RRR Soft, ND, NT PLAN and TREATMENT S/p lap RYGB with marginal ulcer bleed. HD stable. Plan cont carafate and protonix. Ready for Discharge (Yes/No)? TEACHING ATTESTATION 12/06/2016 [facility] [place] Extracted from:Title: Hospitalist discharge summary Author: Ander Hill MD Date: 12/04/16 *Admission date: 12/04/2016 *Discharge date: 12/04/2016 *Admission diagnosis: 1. Acute gastrointestinal bleeding, upper vs lower. 2. Acute blood loss anemia. 3. Syncope episode. *Discharge diagnosis: 1. Acute gastrointestinal bleeding, upper vs lower. 2. Acute blood loss anemia s/p 2units PRBC transfusion. 3. Syncope episode. *Secondary diagnosis: Hypothyroidism. Depression. Gastric bypass surgery on May 2016. *Pertinent imaging studies: -CT abdomen/pelvis: 1. No acute intra-abdominal findings. 2. Small fat-containing umbilical hernia. 3. Indeterminate right adrenal nodule. 4. Changes of prior gastric bypass surgery. HOSPITAL COURSE: 41 years old female with history of gastric bypass surgery on May 2016. The patient presented with two large episodes of hematochezia and episode of syncope. She was found to be anemic with hemoglobin of 8.2g/dl being baseline around 12.5g/dl. Due to significant blood loss she was transfused 2 units of PRBC. She was admitted to telemetry. Started on IV protonix, carafate. I discussed the case with Dr. Palma, patient's bariatric surgeon. In view of the possibility of bleeding from gastric anastomosis it was decided to transfer the patient to [facility]. Patient agreed with the plan. She was transferred in stable condition. Medications on discharge: - Please see completed medication reconciliation list. -Patient condition upon discharge: hemodynamically stable. -Disposition: [facility] Extracted from:Title: Hospitalist H&P Author: Ander Hill MD Date: 12/04/16 Chief complain: Bloody stools. HPI: 41 years old female with history of Silvia-en-y gastric bypass surgery, hypertension diet controlled, hypothyroidism, depression. The patient states that last night she had mild abdominal discomfort and nausea, it resolved on its own. This morning the patient woke up feeling dizzy and lightheaded. Shortly later she had a large bloody bowel movement, bright red blood. No abdominal pain or vomiting. Later on she had a second episode of large bloody bowel movement. She continued feeling dizzy and then she lost consciousness for few seconds. Then EMS was called. In the ER she was found to anemic with hemoglobin of 8.2g/dl being baseline of 12.5g/dl. Two units of PRBC were ordered. Past medical history: Hypertension,. Hypothyroidism. Depression. Past surgical history: Arthroscopy of knee [place] tooth section Partial hysterectomy Gastric bypass surgery in May 2016 Family history: Mother: Anxiety; Cancer; Depression; Emphysema.; GERD (gastroesophageal reflux disease)..; High blood pressure; Hyperlipidemia; Lymphoma; Renal disease Grandparent: Heart attack; Heart failure; High blood pressure Social history: No history of tobacco, alcohol or illicit drug abuse. Allergies: NKDA *Medications: - Please see completed medication reconciliation list. *Review of systems: Except for what was mention in the H&P, rest of all review of systems are negative. *PHYSICAL EXAM: Vitals Tmp(F) Pulse BP RR SpO2 FIO2 12/04 12:35 98.2 78 127/84 18 100 --- 12/04 12:05 97.5 68 117/68 18 100 --- 24 Hr Tmax: 98.2F (36.78c) at 12/04 12:35 Vital Signs are the last 5 in the past 48 hours. General: patient lying in bed in no distress. HEENT: JANEY, EOMI. Neck: supple, no jvd. no thyromegaly. Chest: clear breath sounds bilaterally, no wheezing, rales or bronchi. Cardiovascular: regular rate and rhythm. No murmurs or gallops. Abdomen: soft, non tender to palpation. Musculoskeletal: no peripheral edema. No joint swelling. CLAIMS ACCOUNT MANAGER: awake and alert, no focal signs. Skin: no rash. [facility] BUN: 26 mg/dL High (12/04/16) Hct: 23.9 % Low (12/04/16) Hgb: 8.2 g/dL Low (12/04/16) MCH: 30.2 pg (12/04/16) MCHC: 34.2 g/dL (12/04/16) MCV: 88.2 fL (12/04/16) MPV: 10.2 fL (12/04/16) Platelet: 211 K/CMM (12/04/16) RBC: 2.71 M/CMM Low (12/04/16) RDW: 13.5 % (12/04/16) WBC: 5.2 K/CMM (12/04/16) CHD Risk: 3.64 Low (08/21/16) Chol: 153 mg/dL (08/21/16) HDL: 42 mg/dL Low (08/21/16) LDL (Calculated): 93 mg/dL (08/21/16) Tri mg/dL (08/21/16) VLDL: 18 (08/21/16) CK MB: <1.0 (12/04/16) -CT abdomen/pelvis: 1. No acute intra-abdominal findings. 2. Small fat-containing umbilical hernia. 3. Indeterminate right adrenal nodule. 4. Changes of prior gastric bypass surgery. ASSESSMENT/PLAN: 1. Lower gastrointestinal bleeding, query secondary to diverticular bleed, internal hemorrhoids. Bleed was significant. Will admit to telemetry. Automatic Print Developer consulted. She never had colonoscopy before. 2. Acute blood loss anemia. Significant drop in hemoglobin from baseline, with symptoms including syncopal episode. Agree with transfusion of 2 units PRBC. Will monitor h/h. 3. Dehydration with hypovolemia. IVFs. 4. Hypothyroidism. Resume synthroid. 5. VTE prophylaxis. SCDs. 6. History of Silvia-en-y bypass surgery. 12/05/2016 [facility] Extracted from:Title: Clinical Document Author: Hunter Beyer (Fellow) Date: 05/17/16 Progress Note [facility] S: No c/o, no acute events, janine B-FLD, ambulating well, pain well-controlled O: Vitals Tmp(F) Pulse BP RR SpO2 FIO2 05/17 07:45 97.8 74 113/75 20 --- --- 05/17 04:00 98.2 73 112/70 18 --- --- 05/16 23:15 ---- --- ----- -- 94 --- 05/16 23:00 98.2 68 116/59 18 --- --- 05/16 20:00 98.9 80 115/72 18 --- --- 24 Hr Tmax: 98.9F (37.17c) at 05/16 20:00 Vital Signs are the last 5 in the past 48 hours. I&O Record In Out Bal 05/17 24hr Tot 0 450 -450 05/16 24hr Tot 1069 1750 -171 Scheduled Meds (2): 05/15/16 enoxaparin 30 mg SUB-Q Q12H 05/15/16 nutritional supplement (Beneprotein 7 gm pkt) 2 pkt PO TID NAD, AAOx3 CTA-B RRR ABD soft, appro TTP, +BS, incisions c/d/i A&P: 41 y/o F s/p Lap RYGB POD #2 - Advance to FLD - Start PO medications - Ambulate halls - IS and pulmonary toilet - Home later today if able 05/17/2016 [facility] Plan of Care No Data Provided for This Section Social History Social History Date Source Social History TypeResponse Substance Abuse Use: None. Alcohol Current, Type Wine. Frequency: 1-2 times per month. Smoking Status Never smoker; Exposure to Tobacco Smoke None; Cigarette Smoking Last 365 Days No; Reg Smoking Cessation Counseling No entered on: 01/01/17 12/05/2016 [facility] Social [facility] [place] TypeResponse Substance Abuse Use: None. Alcohol Current, Type Wine. Frequency: 1-2 times per month. Smoking Status Never smoker; Exposure to Tobacco Smoke None; Cigarette Smoking Last 365 Days No; Reg Smoking Cessation Counseling No 12/05/2016 [facility] Social History TypeResponse Substance Abuse Use: None. Alcohol Current, Type Wine. Frequency: 1-2 times per month. Smoking Status Never smoker; Exposure to Tobacco Smoke None; Cigarette Smoking Last 365 Days No; Reg Smoking Cessation Counseling No entered on: 05/07/18 12/05/2016 [facility] Smoking Status Never Smoker 03/23/2012 [facility] Family History No Data Provided for This Section Advance Directives No Data Provided for This Section Functional Status No Data Provided for This Section"
--- OUTSIDE RECORDS SUMMARY | 2019-01-06 10:33 | XMS REPORT | Summary of Care ---
Author Author [facility] Organization [facility] Address Unknown Phone Unavailable Encounter HQ Donaldr_[email or web address](FIN) [phone] Date(s): 07/23/17 - 07/24/17 [facility] [address] [place] [id number] [phone] Vital Signs No data available for this section Problem List Condition Effective Dates Status Health Status Informant Thyroid Active disease(Confirmed) GERD Active (gastroesophageal reflux disease)(Confirmed) HTN Active (hypertension)(Confi rmed) Hypothyroidism(Confi Active rmed) Migraines(Confirmed) Active Anxiety and Active depression(Confirmed ) Depression(Confirmed Active ) Morbid Active obesity(Confirmed) Morbid Active obesity(Confirmed) Hypothyrotropic Active hypothyroidism(Confi rmed) Allergies, Adverse Reactions, Alerts Substance Reaction Severity Status NKDA Active Medications FLUoxetine 20 mg oral tablet 20 mg=1 tab, PO, BID, # 180 tab, 3 Refill(s), Pharmacy: [facility] #[id number] Start Date: 07/23/17 Stop Date: 08/28/17 Status: Completed Results No data available for this section Immunizations No data available for this section Procedures Procedure Date Related Diagnosis Body Site Status Silvia-en-y gastric bypass 2016 Completed Arthroscopy of knee Completed section Completed I131 therapy Completed Partial hysterectomy Completed [place] tooth Completed Social History Social History Type Response Substance Abuse Use: None. Alcohol Current, Type Wine. Frequency: 1-2 times per month. Smoking Status Never smoker; Exposure to Tobacco Smoke None; Cigarette Smoking Last 365 Days No; Reg Smoking Cessation Counseling No entered on: 01/01/17 Assessment and Plan No data available for this section
--- OUTSIDE RECORDS SUMMARY | 2019-01-06 10:33 | XMS REPORT | Summary of Care ---
Author Author [facility] Organization [facility] Address Unknown Phone Unavailable Care Team Providers Care Security Test Engineer Name Role Phone Stephon Irene PCP Encounter HQ Donaldr_[email or web address](FIN) [phone] Date(s): 12/10/18 - 12/11/18 [facility] [address] [place] [id number]- Vital Signs No data available for this section Problem List Condition Effective Dates Status Health Status Informant Thyroid Active disease(Confirmed) GERD Active (gastroesophageal reflux disease)(Confirmed) HTN Active (hypertension)(Confi rmed) Hypothyroidism(Confi Active rmed) Migraines(Confirmed) Active Anxiety and Active depression(Confirmed ) Depression(Confirmed Active ) Morbid Active obesity(Confirmed) Hypothyrotropic Active hypothyroidism(Confi rmed) Allergies, Adverse Reactions, Alerts No Known Allergies Medications No data available for this section Results No data available for this section Immunizations No data available for this section Procedures Procedure Date Related Diagnosis Body Site Status Silvia-en-y gastric bypass 2016 Completed Arthroscopy of knee Completed section Completed I131 therapy Completed Partial hysterectomy Completed [place] tooth Completed Social History Social History Type Response Substance Abuse Use: None. Alcohol Current, Type Wine. Frequency: 1-2 times per month. Smoking Status Never smoker; Exposure to Tobacco Smoke None; Cigarette Smoking Last 365 Days No; Reg Smoking Cessation Counseling No entered on: 05/07/18 Assessment and Plan No data available for this section
--- OUTSIDE RECORDS SUMMARY | 2019-01-06 10:33 | XMS REPORT | Summary of Care ---
Author Author [facility] Organization [facility] Address Unknown Phone Unavailable Care Team Providers Care Fishing Tool Supervisor Name Role Phone Stephon Irene PCP Encounter HQ Aman_cricket(FIN) [phone] Date(s): 11/01/18 - 11/02/18 [facility] [address] [place] [id number]- Vital Signs No data available for this section Problem List Condition Effective Dates Status Health Status Informant Thyroid Active disease(Confirmed) GERD Active (gastroesophageal reflux disease)(Confirmed) HTN Active (hypertension)(Confi rmed) Hypothyroidism(Confi Active rmed) Migraines(Confirmed) Active Anxiety and Active depression(Confirmed ) Depression(Confirmed Active ) Morbid Active obesity(Confirmed) Hypothyrotropic Active hypothyroidism(Confi rmed) Allergies, Adverse Reactions, Alerts No Known Medication Allergies Medications No data available for this section Results No data available for this section Immunizations No data available for this section Procedures Procedure Date Related Diagnosis Body Site Status Silvia-en-y gastric bypass 2016 Completed Arthroscopy of knee Completed section Completed I131 therapy Completed Partial hysterectomy Completed [place] tooth Completed Social History Social History Type Response Substance Abuse Use: None. Alcohol Current, Type Wine. Frequency: 1-2 times per month. Smoking Status Never smoker; Exposure to Tobacco Smoke None; Cigarette Smoking Last 365 Days No; Reg Smoking Cessation Counseling No entered on: 05/07/18 Assessment and Plan No data available for this section
--- OUTSIDE RECORDS SUMMARY | 2019-01-06 10:33 | XMS REPORT | Summary of Care ---
Author Author [facility] Organization [facility] Address Unknown Phone Unavailable Encounter LEONOR Sargent(RIO) [id number] Date(s): 05/15/16 - 05/17/16 [id number] [place] [address]- Discharge Disposition: Home or Self Care Attending Physician: Jeremiah Palma MD Admitting Physician: Jeremiah Palma MD Referring Physician: Jeremiah Palma MD Vital Signs 1 2 3 Most recent to oldest [Reference Range]: 168.91 cm (05/13/16 2:33 PM) Height 97.8 DegF (05/17/16 7:45 AM) 98.2 DegF (05/17/16 4:00 AM) 98.2 DegF (05/16/16 11:00 PM) Temperature Oral [96.4-99.1 DegF] 113/75 mmHg (05/17/16 7:45 AM) 112/70 mmHg (05/17/16 4:00 AM) 116/59 mmHg (05/16/16 11:00 PM) Blood Pressure [90-140/60-90 mmHg] 20 BRMIN (05/17/16 7:45 AM) 18 BRMIN (05/17/16 4:00 AM) 18 BRMIN (05/16/16 11:00 PM) Respiratory Rate [14-20 BRMIN] 74 bpm (05/17/16 7:45 AM) 73 bpm (05/17/16 4:00 AM) 68 bpm (05/16/16 11:00 PM) Peripheral Pulse Rate [60-100 bpm] 122.727 kg (05/13/16 2:33 PM) Weight 43.02 m2 (05/13/16 2:33 PM) Body Mass Index Problem List Condition Effective Dates Status Health Status Informant Thyroid Active disease(Confirmed) GERD Active (gastroesophageal reflux disease)(Confirmed) HTN Active (hypertension)(Confi rmed) Hypothyroidism(Confi Active rmed) Migraines(Confirmed) Active Anxiety and Active depression(Confirmed ) Depression(Confirmed Active ) Morbid Active obesity(Confirmed) Morbid Active obesity(Confirmed) Allergies, Adverse Reactions, Alerts Substance Reaction Severity Status NKDA Active Medications ANES acetaminophen 1,000 mg, 2 tab, Route: PO, Drug form: TAB, ONCE, Dosing Weight 122.727, kg, PRN Pain Score 1-3, Start date: 05/15/16 8:56:00 CHIEF DESIGN ENGINEER, Duration: 1 doses or times, S top date: Limited # of times Notes: Max acetaminophen 4000 mg/day (4 gm/day). (Same as: Tylenol Extra Streng th) Start Date: 05/15/16 Stop Date: 05/15/16 Status: Discontinued ANES diphenhydrAMINE 12.5 mg, 0.25 mL, Route: IVP, Drug form: INJ, Q6H, Dosing Weight 122.727, kg, NE N Itching, Start date: 05/15/16 14:13:00 CHIEF DESIGN ENGINEER, Duration: 30 day, Stop date: 06/14 14:12:00 CHIEF DESIGN ENGINEER Notes: (Same as: Benadryl) Start Date: 05/15/16 Stop Date: 05/15/16 Status: Discontinued ANES ePHEDrine 5 mg, 1 mL, Route: IVP, Drug form: INJ, Q5Min, Dosing Weight 122.727, kg, PRN Lo w Blood Pressure, Start date: 05/15/16 14:13:00 CHIEF DESIGN ENGINEER, Duration: 30 day, Stop date : 06/14/16 14:12:00 CHIEF DESIGN ENGINEER Notes: final concentration 5 mg/mL Start Date: 05/15/16 Stop Date: 05/15/16 Status: Discontinued ANES esmolol 10 mg, 1 mL, Route: IVP, Drug form: INJ, Q5Min, Dosing Weight 122.727, kg, PRN O ther -See Comment, Start date: 05/15/16 14:13:00 CHIEF DESIGN ENGINEER, Duration: 5 doses or times , Stop date: Limited # of times Notes: (Same as: Brevibloc) Start Date: 05/15/16 Stop Date: 05/15/16 Status: Discontinued ANES flumazenil 0.2 mg, 2 mL, Route: IVP, Drug form: INJ, PRN, Dosing Weight 122.727, kg, PRN Be nzodiazepine Reversal, Initial dose, Start date: 05/15/16 8:56:00 CHIEF DESIGN ENGINEER, Duration: 30 day, Stop date: 06/14/16 8:55:00 CHIEF DESIGN ENGINEER Notes: (Same as: Romazicon) Start Date: 05/15/16 Stop Date: 05/15/16 Status: Discontinued ANES glycopyrrolate 0.2 mg, 1 mL, Route: IVP, Drug form: INJ, Q5Min, Dosing Weight 122.727, kg, PRN Bradycardia, Start date: 05/15/16 14:13:00 CHIEF DESIGN ENGINEER, Duration: 3 doses or times, Stop date: Limited # of times Notes: (Same as: Sachin) Start Date: 05/15/16 Stop Date: 05/15/16 Status: Discontinued ANES hydrALAZINE 10 mg, 0.5 mL, Route: IVP, Drug form: INJ, Q20Min, Dosing Weight 122.727, kg, NE N Elevated BP, Start date: 05/15/16 14:13:00 CHIEF DESIGN ENGINEER, Duration: 2 doses or times, St op date: Limited # of times Notes: (Same as: Apresoline)Push over 5 minutes Start Date: 05/15/16 Stop Date: 05/15/16 Status: Discontinued ANES HYDROmorphone 0.5 mg, 0.25 mL, Route: IVP, Drug form: INJ, Q5Min, Dosing Weight 122.727, kg, P RN Pain Score 7-10, Start date: 05/15/16 8:56:00 CHIEF DESIGN ENGINEER, Duration: 4 doses or times , Stop date: Limited # of times Notes: Same as Dilaudid Start Date: 05/15/16 Stop Date: 05/15/16 Status: Completed ANES HYDROmorphone 0.4 mg, 0.2 mL, Route: IVP, Drug form: INJ, Q5Min, Dosing Weight 122.727, kg, NE N Pain Score 7-10, Start date: 05/15/16 14:13:00 CHIEF DESIGN ENGINEER, Duration: 8 doses or times , Stop date: Limited # of times Notes: Same as Dilaudid Start Date: 05/15/16 Stop Date: 05/15/16 Status: Discontinued ANES labetalol 10 mg, 2 mL, Route: IVP, Drug form: INJ, Q5Min, Dosing Weight 122.727, kg, PRN E levated BP, Start date: 05/15/16 8:56:00 CHIEF DESIGN ENGINEER, Duration: 5 doses or times, Stop d ate: Limited # of times Notes: (Same as: Normodyne, Trandate)Push over 2 minutes Give bolus over 2-3 mi nutes. Start Date: 05/15/16 Stop Date: 05/15/16 Status: Discontinued ANES metoprolol 1 mg, 1 mL, Route: IVP, Drug form: INJ, Q5Min, Dosing Weight 122.727, kg, PRN Ot her -See Comment, Start date: 05/15/16 14:13:00 CHIEF DESIGN ENGINEER, Duration: 5 doses or times, Stop date: Limited # of times Notes: (Same as: Lopressor)Push over 2 minutes Start Date: 05/15/16 Stop Date: 05/15/16 Status: Discontinued ANES naloxone 0.4 mg, 1 mL, Route: IVP, Drug form: INJ, Q2MIN, Dosing Weight 122.727, kg, PRN Narcotic Reversal, Start date: 05/15/16 8:56:00 CHIEF DESIGN ENGINEER, Duration: 8 doses or times, Stop date: Limited # of times Notes: Same as Narcan Start Date: 05/15/16 Stop Date: 05/15/16 Status: Discontinued ANES naloxone 0.1 mg, 0.25 mL, Route: SUB-Q, Drug form: INJ, Q6H, Dosing Weight 122.727, kg, P RN Itching, Start date: 05/15/16 14:13:00 CHIEF DESIGN ENGINEER, Duration: 30 day, Stop date: 08/25 14:12:00 CHIEF DESIGN ENGINEER Notes: Same as Narcan Start Date: 05/15/16 Stop Date: 05/15/16 Status: Discontinued ANES ondansetron 4 mg, 2 mL, Route: IVP, Drug form: INJ, ONCE, Dosing Weight 122.727, kg, PRN Ta sea & Vomiting, Start date: 05/15/16 8:56:00 CHIEF DESIGN ENGINEER Notes: (Same as: Clementina) MEDICATION WASTE Product Size: 4 mgProduct Was yuly: ___ mg Start Date: 05/15/16 Stop Date: 05/15/16 Status: Completed ANES scopolamine 1.5 mg transdermal film 1 patch, Route: TOP, Drug Form: ERFILM, Dosing Weight 122.727, kg, ONCE, Apply b ehind ear. Avoid use in elderly., Start date: 05/15/16 14:13:00 CHIEF DESIGN ENGINEER, Stop date: 05/15/16 14:13:00 CHIEF DESIGN ENGINEER Start Date: 05/15/16 Stop Date: 05/15/16 Status: Completed Beneprotein 7 gm pkt 2 pkt, Route: PO, Drug Form: PWDR, Dosing Weight 122.727, kg, TID, Routine, Star t date: 05/15/16 13:00:00 CHIEF DESIGN ENGINEER, Duration: 30 day, Stop date: 06/14/16 9:00:00 CHIEF DESIGN ENGINEER Notes: (Same as: Beneprotein) Start Date: 05/15/16 Stop Date: 05/17/16 Status: Discontinued dexamethasone (ANES) Route: IV, Drug form: INJ, ONCE, Stop date: 05/15/16 8:55:00 CHIEF DESIGN ENGINEER Start Date: 05/15/16 Stop Date: 05/15/16 Status: Completed Dilaudid 0.5 mg, 0.25 mL, Route: IV, Drug form: INJ, Q3H, Dosing Weight 122.727, kg, PRN Pain Score 7-10, Start date: 05/15/16 10:04:00 CHIEF DESIGN ENGINEER, Duration: 30 day, Stop date: 06/14/16 10:03:00 CHIEF DESIGN ENGINEER Notes: Same as Dilaudid Start Date: 05/15/16 Stop Date: 05/17/16 Status: Discontinued enoxaparin 30 mg, 0.3 mL, Route: SUB-Q, Drug form: INJ, Q12H, Dosing Weight 122.727, kg, St art date: 05/15/16 23:00:00 CHIEF DESIGN ENGINEER, Duration: 30 day, Stop date: 06/14/16 11:00:00 CHIEF DESIGN ENGINEER Notes: (Same as: Lovenox) Start Date: 05/15/16 Stop Date: 05/17/16 Status: Discontinued ertapenem (ANES) Route: IV, Drug form: INJ, ONCE, Stop date: 05/15/16 8:55:00 CHIEF DESIGN ENGINEER Start Date: 05/15/16 Stop Date: 05/15/16 Status: Completed famotidine 20 mg, 2 mL, Route: IVP, Drug form: INJ, Q12H, Dosing Weight 122.727, kg, Start date: 05/15/16 21:00:00 CHIEF DESIGN ENGINEER, Duration: 30 day, Stop date: 06/14/16 9:00:00 CHIEF DESIGN ENGINEER Notes: (Same as: Pepcid)Can be dilute in 5-10cc NS IVP: Slow IV push over at le ast 2 minutes. Start Date: 05/15/16 Stop Date: 05/16/16 Status: Discontinued fentaNYL (ANES) Route: IV, Drug form: INJ, ONCE, Stop date: 05/15/16 8:55:00 CHIEF DESIGN ENGINEER Start Date: 05/15/16 Stop Date: 05/15/16 Status: Completed FLUoxetine 20 mg oral tablet 20 mg=1 tab, PO, Daily, # 1 tab, 3 Refill(s), other Start Date: 03/15/16 Status: Ordered glycopyrrolate (ANES) Route: IV, Drug form: INJ, ONCE, Stop date: 05/15/16 10:29:00 CHIEF DESIGN ENGINEER Start Date: 05/15/16 Stop Date: 05/15/16 Status: Completed hydromorphone 0.2 mg, 0.1 mL, Route: IVP, Drug form: INJ, Q5Min, Dosing Weight 122.727, kg, NE N Pain Score 4-6, Start date: 05/15/16 14:13:00 CHIEF DESIGN ENGINEER, Duration: 8 doses or times, Stop date: Limited # of times Notes: Same as Dilaudid Start Date: 05/15/16 Stop Date: 05/15/16 Status: Discontinued INVanz + sodium chloride 0.9% INJ 100 mL 1 gm, Route: IVPB, PRE OP, Start date: 05/15/16 6:00:00 CHIEF DESIGN ENGINEER, Stop date: 05/15/16 23:00:00 CHIEF DESIGN ENGINEER Notes: (Same as: INVanz) Refrigerate. NOT COMPATIBLE WITH D5W.Stable in refrige rator for 24 hours MEDICATION WASTE Product Size: 1000 mgProduct Wasted : ___ mg Start Date: 05/15/16 Stop Date: 05/17/16 Status: Discontinued ketOROLAC 30 mg, 1 mL, Route: IVP, Drug form: INJ, Q6H, Dosing Weight 122.727, kg, Start d ate: 05/15/16 16:00:00 CHIEF DESIGN ENGINEER, Duration: 6 doses or times, Stop date: 05/16/16 22:0 0:00 CHIEF DESIGN ENGINEER Notes: (Same as:Toradol) IV bolus must be given >15 seconds. Give IM administration slowly and deeply into the muscle.Not for use > 4 days MEDICATION WASTE Product Size: 30 mgProduct Wasted: ___ mg Start Date: 05/15/16 Stop Date: 05/16/16 Status: Discontinued ketOROLAC (ANES) IV, ONCE Start Date: 05/15/16 Stop Date: 05/15/16 Status: Completed Lactated Ringers 1,000 mL 1,000 mL, Rate: 125 ml/hr, Infuse over: 8 hr, Route: IV, Dosing Weight 122.727 k g, Total Volume: 1,000, Start date: 05/15/16 10:04:00 CHIEF DESIGN ENGINEER, Stop date: 05/16/16 1 0:03:00 CHIEF DESIGN ENGINEER Start Date: 05/15/16 Stop Date: 05/16/16 Status: Completed Lactated Ringers 1,000 mL 1,000 mL, Rate: 80 ml/hr, Infuse over: 12.5 hr, Route: IV, Dosing Weight 122.727 kg, Total Volume: 1,000, Start date: 05/16/16 10:03:00 CHIEF DESIGN ENGINEER, Duration: 30 day, S top date: 06/15/16 10:02:00 CHIEF DESIGN ENGINEER Start Date: 05/16/16 Stop Date: 05/16/16 Status: Discontinued lidocaine (ANES) Route: IV, Drug form: INJ, ONCE, Stop date: 05/15/16 8:55:00 CHIEF DESIGN ENGINEER Start Date: 05/15/16 Stop Date: 05/15/16 Status: Completed LR 1000 mL INJ (ANES) Route: IV, Total Volume: 1,000, Start date: 05/15/16 8:10:00 CHIEF DESIGN ENGINEER, Stop date: 09/24 9:10:00 CHIEF DESIGN ENGINEER Start Date: 05/15/16 Stop Date: 05/15/16 Status: Completed metoprolol 5 mg, 5 mL, Route: IVP, Drug form: INJ, Q6H, Dosing Weight 122.727, kg, PRN Hype rtension, SBP > 170; DBP > 95, Start date: 05/15/16 10:04:00 CHIEF DESIGN ENGINEER, Duration: 30 day, Stop date: 06/14/16 10:03:00 CHIEF DESIGN ENGINEER Notes: (Same as: Lopressor)Push over 2 minutes Start Date: 05/15/16 Stop Date: 05/17/16 Status: Discontinued midazolam (ANES) Route: IV, Drug form: SOLN, ONCE, Stop date: 05/15/16 8:55:00 CHIEF DESIGN ENGINEER Start Date: 05/15/16 Stop Date: 05/15/16 Status: Completed morphine Sulfate 2 mg, Route: IVP, ONCE, Dosing Weight 122.727, kg, Start date: 05/15/16 11:37:00 CHIEF DESIGN ENGINEER, Stop date: 05/15/16 11:37:00 CHIEF DESIGN ENGINEER Start Date: 05/15/16 Stop Date: 05/15/16 Status: Completed neostigmine (ANES) Route: IV, Drug form: INJ, ONCE, Stop date: 05/15/16 10:29:00 CHIEF DESIGN ENGINEER Start Date: 05/15/16 Stop Date: 05/15/16 Status: Completed Ofirmev 1,000 mg, 100 mL, Route: IV, Drug form: INJ, Q6H, Dosing Weight 122.727, kg, for > or=50 kg, Start date: 05/15/16 12:00:00 CHIEF DESIGN ENGINEER, Duration: 4 doses or times, Stop date: 05/16/16 6:00:00 CHIEF DESIGN ENGINEER Notes: Infuse over 15 minutesDo not exceed 4gm/day of acetaminophen MEDICAT ION WASTE Product Size: 1000 mgProduct Wasted: ___ mg Start Date: 05/15/16 Stop Date: 05/16/16 Status: Completed ondansetron 4 mg, 2 mL, Route: IVP, Drug form: INJ, Q6H, Dosing Weight 122.727, kg, PRN Naus ea & Vomiting, Start date: 05/15/16 10:04:00 CHIEF DESIGN ENGINEER, Duration: 30 day, Stop date: 06/14/16 10:03:00 CHIEF DESIGN ENGINEER Notes: (Same as: Zofran) MEDICATION WASTE Product Size: 4 mgProduct Was yuly: ___ mg Start Date: 05/15/16 Stop Date: 05/17/16 Status: Discontinued ondansetron (ANES) Route: IV, Drug form: INJ, ONCE, Stop date: 05/15/16 10:29:00 CHIEF DESIGN ENGINEER Start Date: 05/15/16 Stop Date: 05/15/16 Status: Completed Phenergan 6.25 mg, Route: IVPB, ONCE, Dosing Weight 122.727, kg, Start date: 05/15/16 10:4 8:00 CHIEF DESIGN ENGINEER, Stop date: 05/15/16 10:48:00 CHIEF DESIGN ENGINEER Start Date: 05/15/16 Stop Date: 05/15/16 Status: Completed promethazine 12.5 mg, 50 mL, Route: IVPB, Drug form: SOLN, Q4H, Dosing Weight 122.727, kg, NE N Nausea & Vomiting, Start date: 05/15/16 10:04:00 CHIEF DESIGN ENGINEER, Duration: 30 day, Stop date: 06/14/16 10:03:00 CHIEF DESIGN ENGINEER Start Date: 05/15/16 Stop Date: 05/17/16 Status: Discontinued propofol (ANES) Route: IV, Drug form: INJ, ONCE, Stop date: 05/15/16 8:55:00 CHIEF DESIGN ENGINEER Start Date: 05/15/16 Stop Date: 05/15/16 Status: Completed rocuronium (ANES) Route: IV, Drug form: INJ, ONCE, Stop date: 05/15/16 8:55:00 CHIEF DESIGN ENGINEER Start Date: 05/15/16 Stop Date: 05/15/16 Status: Completed tramadol 50 mg oral tablet 50 mg=1 tab, PO, Q6H, PRN Other -See Comment | Pain Score 3-6, X 7 day, # 28 tab , 0 Refill(s) Start Date: 05/16/16 Stop Date: 05/23/16 Status: Ordered tramadol 50 mg oral tablet 50 mg, 1 tab, Route: PO, Drug form: TAB, Q6H, Dosing Weight 122.727, kg, PRN Oth er -See Comment, Start date: 05/15/16 10:04:00 CHIEF DESIGN ENGINEER, Duration: 30 day, Stop date: 06/14/16 10:03:00 CHIEF DESIGN ENGINEER, Pain Score 3-6 Notes: Not to exceed 400mg/day. (Same As: Ultram) Start Date: 05/15/16 Stop Date: 05/17/16 Status: Discontinued Tylenol 650 mg, 2 tab, Route: PO, Drug form: TAB, Q6H, Dosing Weight 122.727, kg, Start date: 05/16/16 12:00:00 CHIEF DESIGN ENGINEER, Duration: 4 doses or times, Stop date: 05/17/16 6:0 0:00 CHIEF DESIGN ENGINEER Notes: Do not exceed 4 gm/day. (Same as: Tylenol) Start Date: 05/16/16 Stop Date: 05/17/16 Status: Completed Results BLOOD BANK RESULTS Most recent to 1 2 oldest [Reference Range]: ABO/Rh A POS *Unknown* (05/15/16 7:20 AM) Antibody Scrn Negative (05/15/16 7:20 AM) RBC product Product available (05/15/16 6:00 AM) ELECTROLYTES Most recent to 1 2 oldest [Reference Range]: Sodium Lvl [135-145 138 mEq/L 139 mEq/L mEq/L] (05/16/16 4:47 AM) (05/15/16 7:20 AM) Potassium Lvl 4.9 mEq/L 3.7 mEq/L [3.5-5.1 mEq/L] (05/16/16 4:47 AM) (05/15/16 7:20 AM) Chloride Lvl [95-109 104 mEq/L 104 mEq/L mEq/L] (05/16/16 4:47 AM) (05/15/16 7:20 AM) CO2 [24-32 mEq/L] 22 mEq/L 25 mEq/L *LOW* (05/15/16 7:20 AM) (05/16/16 4:47 AM) AGAP [10.0-20.0 16.9 mEq/L 13.7 mEq/L mEq/L] (05/16/16 4:47 AM) (05/15/16 7:20 AM) CHEM PANEL Most recent to 1 2 oldest [Reference Range]: Creatinine Lvl 0.78 mg/dL 1.01 mg/dL [0.50-1.40 mg/dL] (05/16/16 4:47 AM) (05/15/16 7:20 AM) eGFR 95 mL/min/1.73m2 1 69 mL/min/1.73m2 2 *NA* *NA* (05/16/16 4:47 AM) (05/15/16 7:20 AM) BUN [7-22 mg/dL] 9 mg/dL 14 mg/dL (05/16/16 4:47 AM) (05/15/16 7:20 AM) B/C Ratio [6-25] 14 (05/15/16 7:20 AM) Glucose Lvl [70-99 96 mg/dL 89 mg/dL mg/dL] (05/16/16 4:47 AM) (05/15/16 7:20 AM) Total Protein 8.0 g/dL [6.4-8.4 g/dL] (05/15/16 7:20 AM) Albumin Lvl [3.5-5.0 4.3 g/dL g/dL] (05/15/16 7:20 AM) Globulin [2.7-4.2 3.7 g/dL g/dL] (05/15/16 7:20 AM) A/G Ratio [0.7-1.6] 1.2 (05/15/16 7:20 AM) Calcium Lvl 8.2 mg/dL 8.8 mg/dL [8.5-10.5 mg/dL] *LOW* (05/15/16 7:20 AM) (05/16/16 4:47 AM) ALT [0-65 unit/L] 32 unit/L (05/15/16 7:20 AM) AST [0-37 unit/L] 17 unit/L (05/15/16 7:20 AM) Alk Phos [39-136 72 unit/L unit/L] (05/15/16 7:20 AM) Bili Total [0.2-1.3 1.4 mg/dL mg/dL] *HI* (05/15/16 7:20 AM) Vitamin B1 108.9 nMol/L 3 [66.5-200.0 nMol/L] *NA* (05/15/16 7:20 AM) Vitamin D, 25-OH, <13 ng/mL Total [30-100 ng/mL] *LOW* (05/15/16 7:20 AM) 1Result Comment: The eGFR is calculated using the [...] from the National Kidney Disease Education Program ( NKDEP) which additionally recommends that when the eGFR is used in patients with extremes of body mass index for purposes of drug dosing, the eGFR should be mul tiplied by the estimated BMI. 2Result Comment: The eGFR is calculated using the [...] from the National Kidney Disease Education Program ( NKDEP) which additionally recommends that when the eGFR is used in patients with extremes of body mass index for purposes of drug dosing, the eGFR should be mul tiplied by the estimated BMI. 3Result Comment: Performed At: [facility] [id number] Nadia Lyle MD Ph:[phone] PARATHYROID PROFILE Most recent to 1 2 oldest [Reference Range]: PTH Intact 169.0 pg/mL [11.1-79.5 pg/mL] *HI* (05/15/16 7:20 AM) HEMATOLOGY Most recent to 1 2 oldest [Reference Range]: WBC [3.7-10.4 K/CMM] 15.2 K/CMM 8.1 K/CMM *HI* (05/15/16 7:20 AM) (05/16/16 4:47 AM) RBC [4.20-5.40 4.24 M/CMM 4.71 M/CMM M/CMM] (05/16/16 4:47 AM) (05/15/16 7:20 AM) Hgb [12.0-16.0 g/dL] 12.0 g/dL 13.5 g/dL (05/16/16 4:47 AM) (05/15/16 7:20 AM) Hct [36.0-48.0 %] 35.9 % 40.6 % *LOW* (05/15/16 7:20 AM) (05/16/16 4:47 AM) MCV [80.0-98.0 fL] 84.5 fL 86.1 fL (05/16/16 4:47 AM) (05/15/16 7:20 AM) MCH [27.0-31.0 pg] 28.3 pg 28.7 pg (05/16/16 4:47 AM) (05/15/16 7:20 AM) MCHC [32.0-36.0 33.5 g/dL 33.3 g/dL g/dL] (05/16/16 4:47 AM) (05/15/16 7:20 AM) RDW [11.5-14.5 %] 13.3 % 13.5 % (05/16/16 4:47 AM) (05/15/16 7:20 AM) Platelet [133-450 247 K/CMM 264 K/CMM K/CMM] (05/16/16 4:47 AM) (05/15/16 7:20 AM) MPV [7.4-10.4 fL] 9.6 fL 9.8 fL (05/16/16 4:47 AM) (05/15/16 7:20 AM) Segs [45.0-75.0 %] 86.4 % 66.0 % *HI* (05/15/16 7:20 AM) (05/16/16 4:47 AM) Lymphocytes 7.8 % 23.3 % [20.0-40.0 %] *LOW* (05/15/16 7:20 AM) (05/16/16 4:47 AM) Monocytes [2.0-12.0 5.7 % 8.0 % %] (05/16/16 4:47 AM) (05/15/16 7:20 AM) Eosinophils [0.0-4.0 1.7 % %] (05/15/16 7:20 AM) Basophils [0.0-1.0 0.1 % 1.0 % %] (05/16/16 4:47 AM) (05/15/16 7:20 AM) Segs-Bands # 13.2 K/CMM 5.4 K/CMM [1.5-8.1 K/CMM] *HI* (05/15/16 7:20 AM) (05/16/16 4:47 AM) Lymphocytes # 1.2 K/CMM 1.9 K/CMM [1.0-5.5 K/CMM] (05/16/16 4:47 AM) (05/15/16 7:20 AM) Monocytes # [0.0-0.8 0.9 K/CMM 0.6 K/CMM K/CMM] *HI* (05/15/16 7:20 AM) (05/16/16 4:47 AM) Eosinophils # 0.1 K/CMM [0.0-0.5 K/CMM] (05/15/16 7:20 AM) Basophils # [0.0-0.2 0.1 K/CMM K/CMM] (05/15/16 7:20 AM) RBC Morph Normal (05/16/16 4:47 AM) Plt Morph Normal (05/16/16 4:47 AM) PT [12.0-14.7 14.0 seconds seconds] (05/15/16 7:20 AM) INR [0.85-1.17] 1.06 (05/15/16 7:20 AM) PTT [22.9-35.8 32.6 seconds seconds] (05/15/16 7:20 AM) Immunizations No data available for this section Procedures Procedure Date Related Diagnosis Body Site Arthroscopy of knee section Partial hysterectomy [place] tooth Social History Social History Type Response Smoking Status Never smoker; Exposure to Tobacco Smoke None; Cigarette Smoking Last 365 Days No; Reg Smoking Cessation Counseling No Assessment and Plan Extracted from: Title: Clinical Document Author: Hunter Beyer Date: 05/17/16 (Fellow) Progress Note [facility] S: No c/o, no acute events, janine B-FLD, ambulating well, pain well-controlled O: VitalsTmp(F)[id number] 05/17 07:[id number]------ 05/17 04:[id number]/7018------ 05/16 23:15 94--- 05/16 23:[id number]------ 05/16 20:[id number]------ 24 Hr Tmax: 98.9F (37.17c) at 05/16 20:00Vital Signs are the last 5 in the past 48 hours. I&ORecordInOutBal 05/723hr Tot 0 450 -450 05/623hr Tot 1069 1750 -681 Scheduled Meds (2): 05/15/16 enoxaparin 30 mg SUB-Q Q12H 05/15/16 nutritional supplement (Beneprotein 7 gm pkt) 2 pkt PO TID NAD, AAOx3 CTA-B RRR ABD soft, appro TTP, +BS, incisions c/d/i A&P: 41 y/o F s/p Lap RYGB POD #2 - Advance to FLD - Start PO medications - Ambulate halls - IS and pulmonary toilet - Home later today if able"
--- OUTSIDE RECORDS SUMMARY | 2019-01-06 10:33 | XMS REPORT | Summary of Care ---
Author Author [facility] Organization [facility] Address Unknown Phone Unavailable Care Team Providers Care Solar Thermal Installer Name Role Phone Stephon Irene PCP Encounter [facility](FIN) [phone] Date(s): 11/01/18 - 11/02/18 [facility] [address] [place] [phone]- Vital Signs No data available for this section Problem List Condition Effective Dates Status Health Status Informant Thyroid Active disease(Confirmed) GERD Active (gastroesophageal reflux disease)(Confirmed) HTN Active (hypertension)(Confi rmed) Hypothyroidism(Confi Active rmed) Migraines(Confirmed) Active Anxiety and Active depression(Confirmed ) Depression(Confirmed Active ) Morbid Active obesity(Confirmed) Hypothyrotropic Active hypothyroidism(Confi rmed) Allergies, Adverse Reactions, Alerts No Known Medication Allergies Medications [place] Thyroid 120 mg oral tablet 120 mg=1 tab, PO, Daily, # 90 tab, 1 Refill(s), Pharmacy: [facility]/pharmacy #[id number] Start Date: 11/01/18 Stop Date: 04/30/19 Status: Ordered Results No data available for this section Immunizations No data available for this section Procedures Procedure Date Related Diagnosis Body Site Status Silvia-en-y gastric bypass 2016 Completed Arthroscopy of knee Completed section Completed I131 therapy Completed Partial hysterectomy Completed [place] tooth Completed Social History Social History Type Response Substance Abuse Use: None. Alcohol Current, Type Wine. Frequency: 1-2 times per month. Smoking Status Never smoker; Exposure to Tobacco Smoke None; Cigarette Smoking Last 365 Days No; Reg Smoking Cessation Counseling No entered on: 05/07/18 Assessment and Plan No data available for this section
--- OUTSIDE RECORDS SUMMARY | 2019-01-06 10:33 | XMS REPORT | Summary of Care ---
Author Author [facility] Organization [facility] Address Unknown Phone Unavailable Encounter HQ Rosetta(RIO) [phone] Date(s): 12/04/16 - 12/04/16 [facility] [address] [place] [address]- Discharge Disposition: Acute Care Attending Physician: Ander Hill MD Admitting Physician: Ander Hill MD Vital Signs 1 2 3 Most recent to oldest [Reference Range]: 167.64 cm (12/04/16 2:21 PM) 165.1 cm (12/04/16 9:12 AM) Height 98.3 DegF (12/04/16 10:42 PM) 98.0 DegF (12/04/16 7:37 PM) 98.2 DegF (12/04/16 12:35 PM) Temperature Oral [96.4-99.1 DegF] 114/67 mmHg (12/04/16 10:42 PM) 116/71 mmHg (12/04/16 7:37 PM) 127/84 mmHg (12/04/16 12:35 PM) Blood Pressure [90-140/60-90 mmHg] 18 BRMIN (12/04/16 10:42 PM) 18 BRMIN (12/04/16 7:37 PM) 18 BRMIN (12/04/16 12:35 PM) Respiratory Rate [14-20 BRMIN] 83 bpm (12/04/16 10:42 PM) 67 bpm (12/04/16 7:37 PM) 78 bpm (12/04/16 12:35 PM) Peripheral Pulse Rate [60-100 bpm] 92.443 kg (12/04/16 2:21 PM) 88.636 kg (12/04/16 9:12 AM) Weight 32.89 m2 (12/04/16 2:21 PM) 32.52 m2 (12/04/16 9:12 AM) Body Mass Index Problem List Condition Effective Dates Status Health Status Informant Thyroid Active disease(Confirmed) GERD Active (gastroesophageal reflux disease)(Confirmed) HTN Active (hypertension)(Confi rmed) Hypothyroidism(Confi Active rmed) Migraines(Confirmed) Active Anxiety and Active depression(Confirmed ) Depression(Confirmed Active ) Morbid Active obesity(Confirmed) Morbid Active obesity(Confirmed) Allergies, Adverse Reactions, Alerts Substance Reaction Severity Status NKDA Active Medications acetaminophen 650 mg, 2 tab, Route: PO, Drug form: TAB, Q4H, Dosing Weight 88.636, kg, PRN Enrique n 1-3/Temp > 100.4 F, Start date: 12/04/16 11:37:00 CDT, Duration: 30 day, Stop date: 01/03/17 11:36:00 CDT Notes: Do not exceed 4 gm/day. (Same as: Tylenol) Start Date: 12/04/16 Stop Date: 12/04/16 Status: Discontinued acetaminophen 325 mg oral tablet 650 mg=2 tab, PO, Q4H, PRN Pain 1-3/Temp > 100.4 F, 0 Refill(s) Start Date: 12/04/16 Status: Ordered acetaminophen-hydrocodone 325 mg-5 mg oral tablet 1 tab, PO, Q4H, PRN Pain Score 4-6, 0 Refill(s) Start Date: 12/04/16 Stop Date: 12/06/16 Status: Discontinued acetaminophen-hydrocodone 325 mg-5 mg oral tablet 1 tab, Route: PO, Drug Form: TAB, Dosing Weight 88.636, kg, Q4H, PRN Pain Score 4-6, Start date: 12/04/16 11:37:00 CDT, Duration: 30 day, Stop date: 01/03/17 11 :36:00 CDT Notes: (Same as: [place] 325/5) Do not exceed 4gm/day of acetaminophen. Start Date: 12/04/16 Stop Date: 12/04/16 Status: Discontinued Carafate 1 g/10 mL oral suspension 1 gm, 1 tab, Route: PO, Drug form: TAB, QID, Dosing Weight 92.443, kg, Start shane e: 12/04/16 17:00:00 CDT, Duration: 30 day, Stop date: 01/03/17 13:00:00 CDT Notes: May interfere w/enteral feeds - Take 1 hr before or 2 hr after antacids, dairy pdt, meals & minerals - On empty stomach.For patients unable to swallow tablet, dissolve in 10mL - 30mL of water or juice and stir before giving. (Same As: Carafate) Start Date: 12/04/16 Stop Date: 12/04/16 Status: Discontinued Carafate 1 g/10 mL oral suspension PO, QID, 0 Refill(s) Start Date: 12/04/16 Stop Date: 12/06/16 Status: Discontinued FLUoxetine 20 mg, 2 cap, Route: PO, Drug form: CAP, Daily, Dosing Weight 88.636, kg, Start date: 12/05/16 9:00:00 CDT, Duration: 30 day, Stop date: 01/03/17 9:00:00 CDT Notes: (Same as: Prozac) Start Date: 12/05/16 Stop Date: 12/04/16 Status: Canceled levothyroxine 175 microgram, 1 tab, Route: PO, Drug form: TAB, Q630AM, Dosing Weight 88.636, k g, Start date: 12/05/16 6:30:00 CDT, Duration: 30 day, Stop date: 01/03/17 6:30: 00 CDT Notes: Take 1 hour before or 2 hours after meal; Enteral feeds may interefere wi th the absorption of this medication. (Same as: Levothroid, Synthroid) Start Date: 12/05/16 Stop Date: 12/04/16 Status: Canceled magnesium sulfate 1 gm, 100 mL, Route: IVPB, Drug form: INJ, ONCE, Dosing Weight 88.636, kg, Start date: 12/04/16 11:39:00 CDT, Stop date: 12/04/16 11:39:00 CDT Notes: WASTE: F/P - Sink; E - Municipal Trash Bin Start Date: 12/04/16 Stop Date: 12/04/16 Status: Discontinued magnesium sulfate 2 gm, 50 mL, Route: IVPB, Drug form: INJ, ONCE, Dosing Weight 88.636, kg, Priori ty: STAT, Start date: 12/04/16 11:36:00 CDT, Stop date: 12/04/16 11:36:00 CDT Notes: WASTE: F/P - Sink; E - Municipal Trash Bin Start Date: 12/04/16 Stop Date: 12/04/16 Status: Completed morphine Sulfate 2 mg, 1 mL, Route: IVP, Drug form: INJ, Q4H, Dosing Weight 88.636, kg, PRN Pain Score 7-10, Start date: 12/04/16 11:37:00 CDT, Duration: 30 day, Stop date: 12/10 10/25 11:36:00 CDT Notes: (Same as:MORPhine Sulfate) Start Date: 12/04/16 Stop Date: 12/04/16 Status: Discontinued morphine Sulfate 2 mg=1 mL, IVP, Q4H, PRN Pain Score 7-10, 0 Refill(s) Start Date: 12/04/16 Stop Date: 12/06/16 Status: Discontinued Omnipaque 300 injectable solution 100 mL, Route: IVP, Drug Form: SOLN, Dosing Weight 88.636, kg, ONCE, GFR > 45 mL/min, STAT, Start date: 12/04/16 10:21:00 CDT, Stop date: 12/04/16 10:21:00 CDT Notes: (Same as:Omnipaque 300).WASTE: F/P - Black; E - Municipal Trash Bin Start Date: 12/04/16 Stop Date: 12/04/16 Status: Completed ondansetron 4 mg, 2 mL, Route: IVP, Drug form: INJ, Q6H, Dosing Weight 88.636, kg, PRN Nause a & Vomiting, Start date: 12/04/16 11:37:00 CDT, Duration: 30 day, Stop date: 01/03/17 11:36:00 CDT Notes: (Same as: Clementina) MEDICATION WASTE Product Size: 4 mgProduct Was yuly: ___ mg Start Date: 12/04/16 Stop Date: 12/04/16 Status: Discontinued ondansetron 2 mg/mL injectable solution 4 mg=2 mL, IVP, Q6H, PRN Nausea & Vomiting, 0 Refill(s) Start Date: 12/04/16 Stop Date: 12/06/16 Status: Discontinued pantoprazole 40 mg, Route: IVP, Drug form: INJ, BID, Dosing Weight 88.636, kg, Priority: STAT , Start date: 12/04/16 11:39:00 CDT, Duration: 30 day, Stop date: 01/03/17 9:00: 00 CDT Notes: For IV push reconstitute with 10 ml 0.9% sodium chloride and push over 2 minutes. (Same as: Protonix) Start Date: 12/04/16 Stop Date: 12/04/16 Status: Discontinued Pepcid 20 mg, 2 mL, Route: IVP, Drug form: INJ, Q12H, Dosing Weight 88.636, kg, Start d ate: 12/04/16 21:00:00 CDT, Duration: 30 day, Stop date: 01/03/17 9:00:00 CDT Notes: (Same as: Pepcid)Can be dilute in 5-10cc NS IVP: Slow IV push over at le ast 2 minutes. Start Date: 12/04/16 Stop Date: 12/04/16 Status: Canceled Protonix 40 mg, Route: IVP, Drug form: INJ, BID, Dosing Weight 92.443, kg, Start date: 21:30:00 CDT, Duration: 30 day, Stop date: 01/03/17 21:00:00 CDT Notes: For IV push reconstitute with 10 ml 0.9% sodium chloride and push over 2 minutes. (Same as: Protonix) Start Date: 12/04/16 Stop Date: 12/04/16 Status: Discontinued Protonix 40 mg, 1 tab, Route: PO, Drug form: ECTAB, BID-Before Meals, Dosing Weight 92.44 3, kg, Priority: NOW, Start date: 12/04/16 16:02:00 CDT, Duration: 30 day, Stop date: 01/03/17 7:30:00 CDT Notes: Tablet should not be chewed or crushed.(Same as: Protonix) Start Date: 12/04/16 Stop Date: 12/04/16 Status: Discontinued Protonix 40 mg, IVP, BID, 0 Refill(s) Start Date: 12/04/16 Stop Date: 12/06/16 Status: Discontinued Saline Flush 0.9% 10 mL, Route: IVP, Drug Form: INJ, Dosing Weight 88.636, kg, PRN, PRN Line Flush , Start date: 12/04/16 9:28:00 CDT, Duration: 30 day, Stop date: 01/03/17 9:27:0 0 CDT Notes: (Same as: BD Posiflush) Start Date: 12/04/16 Stop Date: 12/04/16 Status: Discontinued Saline Flush 0.9% 10 ml, Route: IVP, Drug Form: INJ, Dosing Weight 88.636, kg, PRN, PRN Line Flush , Start date: 12/04/16 11:37:00 CDT, Duration: 30 day, Stop date: 01/03/17 11:36 :00 CDT Notes: (Same as: BD Posiflush) Start Date: 12/04/16 Stop Date: 12/04/16 Status: Discontinued Sodium Chloride 0.9% (Bolus) IV 1,000 mL, 1000 ml/hr, Infuse Over: 1 hr, Route: IV, 1,000, Drug form: INJ, ONCE, Priority: STAT, Dosing Weight 88.636 kg, Start date: 12/04/16 9:28:00 CDT, Dura tion: 1 doses or times, Stop date: 12/04/16 9:28:00 CDT Start Date: 12/04/16 Stop Date: 12/04/16 Status: Completed sodium chloride 0.9% 1000 ml INJ 1,000 mL 1,000 mL, Rate: 125 ml/hr, Infuse over: 8 hr, Route: IV, Dosing Weight 88.636 kg , Total Volume: 1,000, Start date: 12/04/16 11:37:00 CDT, Duration: 30 day, Stop date: 01/03/17 11:36:00 CDT Start Date: 12/04/16 Stop Date: 12/04/16 Status: Discontinued Results BLOOD BANK RESULTS Most recent to 1 2 oldest [Reference Range]: ABO/Rh A POS *Unknown* (12/04/16 10:15 AM) Antibody Scrn Negative (12/04/16 10:15 AM) RBC product Product available 1 (12/04/16 11:11 AM) 1Result Comment: 12/04/2016 11:16 MABUNING Called to DALIA at 12/04/2016 11:16 by MB. ELECTROLYTES Most recent to 1 2 oldest [Reference Range]: Sodium Lvl [135-145 143 mEq/L mEq/L] (12/04/16 9:34 AM) Potassium Lvl 4.4 mEq/L [3.5-5.1 mEq/L] (12/04/16 9:34 AM) Chloride Lvl [95-109 113 mEq/L mEq/L] *HI* (12/04/16 9:34 AM) CO2 [24-32 mEq/L] 22 mEq/L *LOW* (12/04/16 9:34 AM) AGAP [10.0-20.0 12.4 mEq/L mEq/L] (12/04/16 9:34 AM) CHEM PANEL Most recent to 1 2 oldest [Reference Range]: Creatinine Lvl 0.78 mg/dL [0.50-1.40 mg/dL] (12/04/16 9:34 AM) eGFR 94 mL/min/1.73m2 1 *NA* (12/04/16 9:34 AM) BUN [7-22 mg/dL] 26 mg/dL *HI* (12/04/16 9:34 AM) B/C Ratio [6-25] 33 *HI* (12/04/16 9:34 AM) Glucose Lvl [70-99 131 mg/dL mg/dL] *HI* (12/04/16 9:34 AM) Total Protein 5.5 g/dL [6.4-8.4 g/dL] *LOW* (12/04/16 9:34 AM) Albumin Lvl [3.5-5.0 2.9 g/dL g/dL] *LOW* (12/04/16 9:34 AM) Globulin [2.7-4.2 2.6 g/dL g/dL] *LOW* (12/04/16 9:34 AM) A/G Ratio [0.7-1.6] 1.1 (12/04/16 9:34 AM) Calcium Lvl 7.7 mg/dL [8.5-10.5 mg/dL] *LOW* (12/04/16 9:34 AM) Magnesium Lvl 1.7 mg/dL [1.8-2.4 mg/dL] *LOW* (12/04/16 9:34 AM) ALT [0-65 unit/L] 13 unit/L (12/04/16 9:34 AM) AST [0-37 unit/L] 16 unit/L (12/04/16 9:34 AM) Alk Phos [39-136 36 unit/L unit/L] *LOW* (12/04/16 9:34 AM) Bili Total [0.2-1.3 0.6 mg/dL mg/dL] (12/04/16 9:34 AM) Lipase Lvl [73-393 182 unit/L unit/L] (12/04/16 9:34 AM) 1Result Comment: The eGFR is calculated [...] be mul tiplied by the estimated BMI. CARDIAC ENZYMES Most recent to 1 2 oldest [Reference Range]: Total CK [12-191 60 unit/L unit/L] (12/04/16 9:34 AM) CK MB [0.5-3.6 <1.0 ng/mL ng/mL] (12/04/16 9:34 AM) CK MB Index <1.7 [0.0-2.5] (12/04/16 9:34 AM) Troponin-I <0.02 ng/mL [0.00-0.40 ng/mL] (12/04/16 9:34 AM) ENDOCRINOLOGY Most recent to 1 2 oldest [Reference Range]: S Preg [Negative] Negative *NA* (12/04/16 9:34 AM) URINE AND STOOL Most recent to 1 2 oldest [Reference Range]: Occult Bld Stl Positive [Negative] *ABN* (12/04/16 10:01 AM) HEMATOLOGY Most recent to 1 2 oldest [Reference Range]: WBC [3.7-10.4 K/CMM] 5.2 K/CMM (12/04/16 9:34 AM) RBC [4.20-5.40 2.71 M/CMM M/CMM] *LOW* (12/04/16 9:34 AM) Hgb [12.0-16.0 g/dL] 8.6 g/dL 8.2 g/dL *LOW* *LOW* (12/04/16 7:10 PM) (12/04/16 9:34 AM) Hct [36.0-48.0 %] 25.0 % 23.9 % *LOW* *LOW* (12/04/16 7:10 PM) (12/04/16 9:34 AM) MCV [80.0-98.0 fL] 88.2 fL (12/04/16 9:34 AM) MCH [27.0-31.0 pg] 30.2 pg (12/04/16 9:34 AM) MCHC [32.0-36.0 34.2 g/dL g/dL] (12/04/16 9:34 AM) RDW [11.5-14.5 %] 13.5 % (12/04/16 9:34 AM) Platelet [133-450 211 K/CMM K/CMM] (12/04/16 9:34 AM) MPV [7.4-10.4 fL] 10.2 fL (12/04/16 9:34 AM) Segs [45.0-75.0 %] 61.2 % (12/04/16 9:34 AM) Lymphocytes 31.0 % [20.0-40.0 %] (12/04/16 9:34 AM) Monocytes [2.0-12.0 5.7 % %] (12/04/16 9:34 AM) Eosinophils [0.0-4.0 1.4 % %] (12/04/16 9:34 AM) Basophils [0.0-1.0 0.7 % %] (12/04/16 9:34 AM) Segs-Bands # 3.2 K/CMM [1.5-8.1 K/CMM] (12/04/16 9:34 AM) Lymphocytes # 1.6 K/CMM [1.0-5.5 K/CMM] (12/04/16 9:34 AM) Monocytes # [0.0-0.8 0.3 K/CMM K/CMM] (12/04/16 9:34 AM) Eosinophils # 0.1 K/CMM [0.0-0.5 K/CMM] (12/04/16 9:34 AM) PT [12.0-14.7 15.1 seconds seconds] *HI* (12/04/16 9:34 AM) INR [0.85-1.17] 1.17 (12/04/16 9:34 AM) PTT [22.9-35.8 25.2 seconds seconds] (12/04/16 9:34 AM) Immunizations No data available for this section Procedures Procedure Date Related Diagnosis Body Site Silvia-en-y gastric bypass 2016 Arthroscopy of knee section Partial hysterectomy [place] tooth Social History Social History Type Response Substance Abuse Use: None. Alcohol Current, Type Wine. Frequency: 1-2 times per month. Smoking Status Never smoker; Exposure to Tobacco Smoke None; Cigarette Smoking Last 365 Days No; Reg Smoking Cessation Counseling No Assessment and Plan Extracted from: Title: Hospitalist discharge Author: Ander Hill MD Date: 12/04/16 summary *Admission date: 12/04/2016 *Discharge date: 12/04/2016 *Admission [...] was decided to transfer the patient to [facility] at [facility]. Patient agreed with the plan. She was transferred in stable condition. Medications on discharge: - Please see completed medication reconciliation list. -Patient condition upon discharge: hemodynamically stable. -Disposition: [facility] Extracted from: Title: Hospitalist H&P Author: Ander Hill MD Date: [...] Depression. Past surgical history: Arthroscopy of knee [place] tooth section Partial hysterectomy Gastric bypass surgery [...] review of systems are negative. *PHYSICAL EXAM: VitalsTmp(F)[id number] 12/04 12:[id number]--- 12/04 12:[id number]--- 24 Hr Tmax: 98.2F (36.78c) at 12/04 12:35Vital Signs are the last 5 in the past 48 hours. General: patient lying in bed in no distress. HEENT: JANEY, EOMI. Neck: supple, no jvd. no thyromegaly. Chest: clear breath sounds bilaterally, no wheezing, rales or bronchi. Cardiovascular: regular rate and rhythm. No murmurs or gallops. Abdomen: soft, non tender to palpation. Musculoskeletal: no peripheral edema. No joint swelling. BENCH CHEMIST: awake and alert, no focal signs. Skin: [...] Bleed was significant. Will admit to telemetry. Commercial Floor Covering Installer consulted. She never had colonoscopy before. 2. Acute blood loss anemia. Significant drop in hemoglobin from baseline, with symptoms including syncopal episode. Agree with transfusion of 2 units PRBC. Will monitor h/h. 3. Dehydration with hypovolemia. IVFs. 4. Hypothyroidism. Resume synthroid. 5. VTE prophylaxis. SCDs. 6. History of Silvia-en-y bypass surgery.
--- OUTSIDE RECORDS SUMMARY | 2019-01-06 10:33 | XMS REPORT | Summary of Care ---
Author Author [facility] Organization [facility] Address Unknown Phone Unavailable Encounter LEONOR Sargent(RIO) [id number] Date(s): 08/28/17 - 08/28/17 [id number] [place] [address]- Discharge Disposition: Home or Self Care Attending Physician: Dustin Zaragoza MD Admitting Physician: Dustin Zaragoza MD Referring Physician: Dustin Zaragoza MD Vital Signs Most recent to 1 oldest [Reference Range]: Height 167.64 cm (08/28/17 9:33 AM) Weight 90 kg (08/28/17 9:33 AM) Body Mass Index 32.02 m2 (08/28/17 9:33 AM) Problem List Condition Effective Dates Status Health Status Informant Thyroid Active disease(Confirmed) GERD Active (gastroesophageal reflux disease)(Confirmed) HTN Active (hypertension)(Confi rmed) Hypothyroidism(Confi Active rmed) Migraines(Confirmed) Active Anxiety and Active depression(Confirmed ) Depression(Confirmed Active ) Morbid Active obesity(Confirmed) Morbid Active obesity(Confirmed) Hypothyrotropic Active hypothyroidism(Confi rmed) Allergies, Adverse Reactions, Alerts Substance Reaction Severity Status NKDA Active Medications Protonix 40 mg oral enteric coated tablet 40 mg=1 tab, PO, Daily, # 30 tab, 0 Refill(s) Start Date: 08/28/17 Status: Ordered Results No data available for this section Immunizations No data available for this section Procedures Procedure Date Related Diagnosis Body Site Status Silvia-en-y gastric bypass 2016 Completed Arthroscopy of knee Completed section Completed I131 therapy Completed Partial hysterectomy Completed [place] tooth Completed Social History Social History Type Response Substance Abuse Use: None. Alcohol Current, Type Wine. Frequency: 1-2 times per month. Smoking Status Never smoker; Exposure to Tobacco Smoke None; Cigarette Smoking Last 365 Days No; Reg Smoking Cessation Counseling No entered on: 01/01/17 Assessment and Plan No data available for this section
--- OUTSIDE RECORDS SUMMARY | 2019-01-06 10:33 | XMS REPORT | Summary of Care ---
Author Author [facility] Organization [facility] Address Unknown Phone Unavailable Care Team Providers Care Circular Clerk Name Role Phone Stephon Irene PCP Encounter HQ Rosetta(FIN) [id number] Date(s): 05/07/18 - 05/07/18 [facility] [address] [place] [address]- Discharge Disposition: Home or Self Care Attending Physician: Stephon Irene MD Vital Signs Most recent to 1 2 oldest [Reference Range]: Height 168.91 cm (05/07/18 10:01 AM) Temperature Oral 98.9 DegF [96.4-99.1 DegF] (05/07/18 10:01 AM) Blood Pressure 139/90 mmHg 151/104 mmHg [90-140/60-90 mmHg] (05/07/18 10:38 AM) *HI* (05/07/18 10:01 AM) Peripheral Pulse 76 bpm 73 bpm Rate [60-100 bpm] (05/07/18 10:38 AM) (05/07/18 10:01 AM) Weight 99.545 kg (05/07/18 10:01 AM) Body Mass Index 34.89 m2 (05/07/18 10:01 AM) Problem List Condition Effective Dates Status Health Status Informant Thyroid Active disease(Confirmed) GERD Active (gastroesophageal reflux disease)(Confirmed) HTN Active (hypertension)(Confi rmed) Hypothyroidism(Confi Active rmed) Migraines(Confirmed) Active Anxiety and Active depression(Confirmed ) Depression(Confirmed Active ) Morbid Active obesity(Confirmed) Hypothyrotropic Active hypothyroidism(Confi rmed) Allergies, Adverse Reactions, Alerts No Known Allergies Medications [place] Thyroid 90 mg oral tablet 90 mg=1 tab, PO, Daily, # 90 tab, 1 Refill(s), Pharmacy: [facility]/pharmacy #[id number] Start Date: 07/20/18 Stop Date: 11/01/18 Status: Discontinued diclofenac topical 1% gel 2 gm=1 appl, TOP, BID, Apply to affected area, # 100 gm, 11 Refill(s), Pharmacy: [facility]/pharmacy #[id number] Start Date: 05/07/18 Status: Ordered Results No data available for this section Immunizations No data available for this section Procedures Procedure Date Related Diagnosis Body Site Status Silvia-en-y gastric bypass 2016 Completed Arthroscopy of knee Completed section Completed I131 therapy Completed Partial hysterectomy Completed [place] tooth Completed Social History Social History Type Response Substance Abuse Use: None. Alcohol Current, Type Wine. Frequency: 1-2 times per month. Smoking Status Never smoker; Exposure to Tobacco Smoke None; Cigarette Smoking Last 365 Days No; Reg Smoking Cessation Counseling No entered on: 05/07/18 Assessment and Plan No data available for this section
--- OUTSIDE RECORDS SUMMARY | 2019-01-06 10:33 | XMS REPORT | Summary of Care ---
Author Author [facility] Organization [facility] Address Unknown Phone Unavailable Encounter HQ Christntr_cricket(FIN) [id number] Date(s): 07/21/17 - 07/22/17 [facility] [address] [place] [address] [phone] Vital Signs No data available for this [...] Daily, # 90 tab, 3 Refill(s), Pharmacy: [facility]/pharmacy #[id number] Start Date: 07/21/17 Status: Ordered Results No data available for this section Immunizations No data available for this section Procedures Procedure Date Related Diagnosis Body Site Status Silvia-en-y gastric bypass 2016 Completed Arthroscopy of knee Completed section Completed I131 therapy Completed Partial hysterectomy Completed [place] tooth Completed Social History Social History Type Response Substance Abuse Use: None. Alcohol Current, Type Wine. Frequency: 1-2 times per month. Smoking Status Never smoker; Exposure to Tobacco Smoke None; Cigarette Smoking Last 365 Days No; Reg Smoking Cessation Counseling No entered on: 01/01/17 Assessment and Plan No data available for this section
--- OUTSIDE RECORDS SUMMARY | 2019-01-06 10:33 | XMS REPORT | Summary of Care ---
Author Author [facility] Organization [facility] Address Unknown Phone Unavailable Encounter LEONOR Sargent(RIO) [id number] Date(s): 02/20/17 - 02/20/[address] [address]- Discharge Disposition: Home or Self Care Attending Physician: Snow Valdivia MD Admitting Physician: Snow Valdivia MD Referring Physician: Snow Valdivia MD Vital Signs Most recent to 1 oldest [Reference Range]: Height 167.64 cm (02/20/17 6:35 AM) Weight 86.364 kg (02/20/17 6:35 AM) Body Mass Index 30.73 m2 (02/20/17 6:35 AM) Problem List Condition Effective Dates Status Health Status Informant Thyroid Active disease(Confirmed) GERD Active (gastroesophageal reflux disease)(Confirmed) HTN Active (hypertension)(Confi rmed) Hypothyroidism(Confi Active rmed) Migraines(Confirmed) Active Anxiety and Active depression(Confirmed ) Depression(Confirmed Active ) Morbid Active obesity(Confirmed) Morbid Active obesity(Confirmed) Hypothyrotropic Active hypothyroidism(Confi rmed) Allergies, Adverse Reactions, Alerts Substance Reaction Severity Status NKDA Active Medications Fish Oil 1000 mg oral capsule 1,000 mg=1 cap, PO, Daily, 0 Refill(s) Start Date: 02/20/17 Status: Ordered Probiotic Formula 1 cap, PO, Daily, 0 Refill(s) Start Date: 02/20/17 Status: Ordered ubiquinol PO, Daily, 0 Refill(s) Start Date: 02/20/17 Status: Ordered Results ELECTROLYTES Most recent to 1 oldest [Reference Range]: POC Sodium [135-145 140 mEq/L mEq/L] (02/20/17 7:00 AM) POC Potassium 4.9 mEq/L [3.5-5.1 mEq/L] (02/20/17 7:00 AM) CHEM PANEL Most recent to 1 oldest [Reference Range]: POC Glucose [70-99 87 mg/dL mg/dL] (02/20/17 7:00 AM) HEMATOLOGY Most recent to 1 oldest [Reference Range]: POC Hemoglobin 12.2 g/dL [12.0-16.0 g/dL] (02/20/17 7:00 AM) POC Hematocrit 36.0 % [36.0-48.0 %] (02/20/17 7:00 AM) Immunizations No data available for this section Procedures Procedure Date Related Diagnosis Body Site Silvia-en-y gastric bypass 2016 Arthroscopy of knee section I131 therapy Partial hysterectomy [place] tooth Social History Social History Type Response Substance Abuse Use: None. Alcohol Current, Type Wine. Frequency: 1-2 times per month. Smoking Status Never smoker; Exposure to Tobacco Smoke None; Cigarette Smoking Last 365 Days No; Reg Smoking Cessation Counseling No Assessment and Plan No data available for this section
--- OUTSIDE RECORDS SUMMARY | 2019-01-06 10:33 | XMS REPORT | Summary of Care ---
Author Author [facility] Organization [facility] Address Unknown Phone Unavailable Encounter HQ Aman_cricket(FIN) [id number] Date(s): 02/02/18 - 02/03/18 [facility] [address] [place] [address]- Vital Signs No data available for this section Problem List Condition Effective Dates Status Health Status Informant Thyroid Active disease(Confirmed) GERD Active (gastroesophageal reflux disease)(Confirmed) HTN Active (hypertension)(Confi rmed) Hypothyroidism(Confi Active rmed) Migraines(Confirmed) Active Anxiety and Active depression(Confirmed ) Depression(Confirmed Active ) Morbid Active obesity(Confirmed) Hypothyrotropic Active hypothyroidism(Confi rmed) Allergies, Adverse Reactions, Alerts Substance Reaction Severity Status NKDA Active Medications No data available for this section Results No data available for this section Immunizations No data available for this section Procedures Procedure Date Related Diagnosis Body Site Status Silvia-en-y gastric bypass 2016 Completed Arthroscopy of knee Completed section Completed I131 therapy Completed Partial hysterectomy Completed [place] tooth Completed Social History Social History Type Response Substance Abuse Use: None. Alcohol Current, Type Wine. Frequency: 1-2 times per month. Smoking Status Never smoker; Exposure to Tobacco Smoke None; Cigarette Smoking Last 365 Days No; Reg Smoking Cessation Counseling No entered on: 05/07/18 Assessment and Plan No data available for this section
--- OUTSIDE RECORDS SUMMARY | 2019-01-06 10:33 | XMS REPORT ---
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 Allergies, Adverse Reactions, Alerts This patient has no known allergies or adverse reactions. Medications This patient has no known medications. Results Test Description Test Time Test Comments Text Results Atomic Results Result Comments HEPTOBILIARY W PHARM 2018-12-16 17:02:00 [place] [address] Patient Name: KRIS KENYON MR #: [id number] : 1975 Age/Sex: 43/F Req #: [id number] [facility] Physician: Ordered by: ELAN DUMONT MD Report #: [id number] Location: PR Room/Bed: Procedure: [id number] NM/HEPTOBILIARY W PHARM Exam Date: Exam Time: REPORT STATUS: Signed Hepatobiliary Scan with Gallbladder Ejection Fraction Clinical i nformation: Chronic abdominal pain Technique: Following intravenous administration of 7.0 millicuries of Tc-99m mebrofenin, dynamic images of the abdomen in the anterior projection were obtained through 30 minutes. Sincalide (CCK analog) 2.0 micrograms was administered intravenously over 30 minutes with additional imaging for determination of gallbladder ejection fraction. Discussion: Perfusion of the liver is normal. Extraction of tracer by the liver parenchyma is normal. Tracer appears promptly within the biliary tract. The gallbladder begins to fill by 8 minutes post injection of tracer and fills adequately. Tracer is seen in the small bowel by 16 minutes. The gallbladder ejection fraction with sincalide is 15% (normal greater than 40%). Impression: 1. Filling of the gallbladder excludes acute cystic duct obstruction/acute cholecystitis. 2. The decreased gallbladder ejection fraction of 15% supports the clinical diagnosis of chronic cholecystitis/gallbladder dyskinesia. Signed by: Dr. Gerhard Desai M.D. on 12/16/2018 5:04 PM Dictated By: GERHARD DESAI MD 03 Transcribed By: LEVI on 12/16/181703 COPY TO: ELAN DUMONT MD GALLBLADDER 2018-12-09 11:38:00 [place] [address] Patient Name: KRIS KENYON MR #: [id number] : 1975 Age/Sex: 43/F Req #: [id number] Adm Physician: Ordered by: ELAN DUMONT MD Report #: [id number] Location: Room/Bed: Procedure: [id number] US/US GALLBLADDER Exam Date: 12/09/18 Exam Time: 1013 REPORT STATUS: Signed EXAM: Right upper quadrant abdominal ultrasound INDICATION: Right upper quadrant pain COMPARISON: None. TECHNIQUE: Transverse and longitudinal images of the right upper quadrant abdomen were obtained FINDINGS: Liver: Size: 16.2 cm in the right midclavicular line, mildly enlarged Appearance: Normal echogenicity, smooth contour Mass: No focal masses Gallbladder: No gallbladder distension, pericholecystic fluid, wall thickening, stone, or reported sonographic Mueller's sign. Minimal amount of sludge in the gallbladder. Gallbladder wall measures 0.3 cm. Bile Ducts: Intrahepatic Ducts: No dilatation Extrahepatic Ducts: Common bile duct measures 0.3cm, no dilatation Pancreas: Visualized portions of the pancreatic head, neck and proximal body are normal. Kidney: The right kidney measures 9.8 cm without evidence of hydronephrosis or stone. Vessels: Aorta: Visualized portions are normal Inferior Vena Cava: Visualized portions are normal Main Portal Vein: 1.1 cm, normal size with hepatopetal flow. Free Fluid: No ascites or pleural effusion IMPRESSION: Minimal sludge in the gallbladder. No sonographic evidence of cholelithiasis or cholecystitis. Mild hepatomegaly. Signed by: Nirmala Mcmahan MD on 12/09/2018 11:39 AM Dictated By: NIRMALA MCMAHAN MD 1139 Transcribed By: LEVI on 12/09/18 113 COPY TO: ELAN DUMONT MD CHEST 2 VIEWS 2018-01-21 15:14:00 [place] [address] Patient Name: KRIS KENYON MR #: [id number] : 1975 Age/Sex: 42/F Req #: [id number] Adm Physician: Ordered by: SEEMA BRISENO MD Report #: [id number] Location: [facility] Room/Bed: Procedure: [id number] DX/CHEST 2 VIEWS Exam Date: 01/21/18 Exam Time: 1045 REPORT STATUS: Signed EXAMINATION: CHEST 2 VIEWS INDICATION: COMPARISON: None FINDINGS: PA and lateral views TUBES and LINES: None. LUNGS: Lungs are well inflated. Lungs are clear. Tiny dense nodules in the perihilar region may represent calcified granulomas. There is no evidence of pneumonia or pulmonary edema. PLEURA: No pleural effusion or pneumothorax. HEART AND MEDIASTINUM: The cardiomediastinal silhouette is unremarkable. BONES AND SOFT TISSUES: Degenerative changes of the thoracic spine. Soft tissues are unremarkable. UPPER ABDOMEN: No free air under the diaphragm. IMPRESSION: No acute thoracic abnormality. Specifically, no radiographic findings to suggest active TB. Signed by: Dr. Keegan Burnett M.D. on 01/21/2018 3:14 PM Dictated By: KEEGAN BURNETT MD 13 Transcribed By: LEVI on 01/21/181513 COPY TO: SEEMA BRISENO MD CHEST 2 VIEWS [place] [address] Patient Name: KRIS KENYON MR #: [id number] : 1975 Age/Sex: 41/F Req #: [id number] Adm Physician: Ordered by: SEEMA BRISENO MD Report #: [id number] Location: [facility] Room/Bed: Procedure: [id number] DX/CHEST 2 VIEWS Exam Date: 02/05/17 Exam Time: 1135 REPORT STATUS: Signed PROCEDURE: CHEST 2 VIEWS TECHNIQUE: PA and lateral chest INDICATION: +PPD COMPARISON: [facility], DX, CHEST 2 VIEWS, 03/03/2016, 13:31. FINDINGS: Lungs are clear and symmetrically inflated. No pleural effusions. Normal heart size, mediastinal contour and pulmonary vasculature. Intact skeleton. CONCLUSION: No evidence of tuberculosis. No acute abnormality. Dictated by: Riddhi Zuniga M.D. on 02/05/2017 at 12:11 Electronically approved by: Riddhi Zuniga M.D. on 02/05/2017 at 12:11 Dictated By: RIDDHI ZUNIGA MD 1211 Transcribed By: DELMI on 02/05/17 1211 COPY TO: SEEMA BRISENO MD
--- OUTSIDE RECORDS SUMMARY | 2019-01-06 10:33 | XMS REPORT | Summary of Care ---
Author Author [facility] Organization [facility] Address Unknown Phone Unavailable Encounter LEONOR Sargent(RIO) [id number] Date(s): 12/04/16 - 12/06/[address] [address]- Discharge Disposition: Home or Self Care Attending Physician: Rosmery Luna MD Admitting Physician: Rosmery Luna MD Vital Signs 1 2 3 Most recent to oldest [Reference Range]: 167.64 cm (12/04/16 11:56 PM) Height 98.4 DegF (12/06/16 12:24 PM) 98.1 DegF (12/06/16 7:24 AM) 98.4 DegF (12/06/16 4:00 AM) Temperature Oral [96.4-99.1 DegF] 120/78 mmHg (12/06/16 12:24 PM) 113/72 mmHg (12/06/16 7:24 AM) 100/65 mmHg (12/06/16 4:00 AM) Blood Pressure [90-140/60-90 mmHg] 18 BRMIN (12/06/16 12:24 PM) 18 BRMIN (12/06/16 7:24 AM) 17 BRMIN (12/06/16 4:00 AM) Respiratory Rate [14-20 BRMIN] 65 bpm (12/06/16 12:24 PM) 59 bpm *LOW* (12/06/16 7:24 AM) 60 bpm (12/06/16 4:00 AM) Peripheral Pulse Rate [60-100 bpm] 95 kg (12/04/16 11:56 PM) Weight 33.8 m2 (12/04/16 11:56 PM) Body Mass Index Problem List Condition Effective Dates Status Health Status Informant Thyroid Active disease(Confirmed) GERD Active (gastroesophageal reflux disease)(Confirmed) HTN Active (hypertension)(Confi rmed) Hypothyroidism(Confi Active rmed) Migraines(Confirmed) Active Anxiety and Active depression(Confirmed ) Depression(Confirmed Active ) Morbid Active obesity(Confirmed) Morbid Active obesity(Confirmed) Allergies, Adverse Reactions, Alerts Substance Reaction Severity Status NKDA Active Medications acetaminophen 325 mg oral tablet 650 mg, 2 tab, Route: PO, Drug form: TAB, Q4H, Dosing Weight 95, kg, PRN Pain 1- 3/Temp > 100.4 F, Start date: 12/05/16 8:23:00 CDT, Duration: 30 day, Stop date: 01/04/17 8:22:00 CDT Notes: Do not exceed 4 gm/day. (Same as: Tylenol) Start Date: 12/05/16 Stop Date: 12/06/16 Status: Discontinued acetaminophen-hydrocodone 325 mg-5 mg oral tablet 1 tab, Route: PO, Drug Form: TAB, Dosing Weight 95, kg, Q4H, PRN Pain Score 4-6, Start date: 12/05/16 8:23:00 CDT, Duration: 30 day, Stop date: 01/04/17 8:22:00 CDT Notes: (Same as: Gile 325/5) Do not exceed 4gm/day of acetaminophen. Start Date: 12/05/16 Stop Date: 12/06/16 Status: Discontinued calcium gluconate + sodium chloride 0.9% INJ 100 mL 2,000 mg, 20 mL, Route: IVPB, ONCE, Dosing Weight 95, kg, Start date: 12/05/16 2 :03:00 CDT, Stop date: 12/05/16 2:03:00 CDT Notes: WASTE: F/P - Sink; E - Municipal Trash Bin Start Date: 12/05/16 Stop Date: 12/05/16 Status: Completed Carafate 1 g/10 mL oral suspension 1 gm, 10 mL, Route: PO, Drug form: SUSP, BID, Dosing Weight 95, kg, Start date: 12/05/16 17:00:00 CDT, Duration: 30 day, Stop date: 01/04/17 9:00:00 CDT Notes: Enteral feeds may interfere with the absorption of this medication. Jose Ramon e well. Take 1 hr before or 2 hrs after antacids, dairy pdt, minerals & meals. (Same As: Carafate) Start Date: 12/05/16 Stop Date: 12/06/16 Status: Discontinued Carafate 1 g/10 mL oral suspension 1 gm=10 mL, PO, QID-Before Meals, # 1400 mL, 0 Refill(s), Pharmacy: [facility]/pharmacy #[id number] Start Date: 12/06/16 Stop Date: 01/10/17 Status: Ordered FLUoxetine 20 mg, 1 cap, Route: PO, Drug form: CAP, Daily, Dosing Weight 95, kg, Start date : 12/05/16 9:00:00 CDT, Duration: 30 day, Stop date: 01/03/17 9:00:00 CDT Notes: (Same as: ProzacJaniceafem) Start Date: 12/05/16 Stop Date: 12/05/16 Status: Discontinued Levothroid 175 microgram, 1 tab, Route: PO, Drug form: TAB, Q630AM, Dosing Weight 95, kg, S tart date: 12/05/16 14:00:00 CDT, Duration: 30 day, Stop date: 01/04/17 6:30:00 CDT Notes: Take 1 hour before or 2 hours after meal; Enteral feeds may interefere wi th the absorption of this medication. (Same as: Levothroid, Synthroid) Start Date: 12/05/16 Stop Date: 12/06/16 Status: Discontinued levothyroxine 175 microgram, 1 tab, Route: PO, Drug form: TAB, Q630AM, Dosing Weight 95, kg, S tart date: 12/05/16 6:30:00 CDT, Duration: 30 day, Stop date: 01/03/17 6:30:00 C DT Notes: Take 1 hour before or 2 hours after meal; Enteral feeds may interefere wi th the absorption of this medication. (Same as: Levothroid, Synthroid) Start Date: 12/05/16 Stop Date: 12/05/16 Status: Discontinued morphine Sulfate 2 mg, 0.5 mL, Route: IVP, Drug form: INJ, Q4H, Dosing Weight 95, kg, PRN Pain Sc ore 7-10, Start date: 12/05/16 8:23:00 CDT, Stop date: 01/04/17 8:22:00 CDT Notes: (Same as:MORPhine Sulfate) Start Date: 12/05/16 Stop Date: 12/06/16 Status: Discontinued ondansetron 4 mg, 2 mL, Route: IVP, Drug form: INJ, Q6H, Dosing Weight 95, kg, PRN as needed for nausea/vomiting, Start date: 12/05/16 8:23:00 CDT, Duration: 30 day, Stop d ate: 01/04/17 8:22:00 CDT Notes: (Same as: Clementina) MEDICATION WASTE Product Size: 4 mgProduct Was yuly: ___ mg Start Date: 12/05/16 Stop Date: 12/06/16 Status: Discontinued pantoprazole 80 mg + sodium chloride 0.9% 100 mL INJ (for IV set) 100 mL 100 mL, Rate: 10 ml/hr, Infuse over: 10 hr, Route: IVPB, Dosing Weight 95 kg, To kayley Volume: 100, Infuse at 8 mg / hr for 72 hours for GI bleeding, Start date: 0 12/05/16 16:48:00 CDT, Duration: 72 hr, Stop date: 12/08/16 16:47:00 CDT Notes: do not load in pyxis Start Date: 12/05/16 Stop Date: 12/06/16 Status: Discontinued potassium chloride 10 mEq, 100 mL, Route: IVPB, Drug form: INJ, Q1H, Dosing Weight 95, kg, Total Do se=20 meq, Start date: 12/05/16 4:00:00 CDT, Duration: 2 doses or times, Stop da te: 12/05/16 5:00:00 CDT, Peripheral Line Notes: Infuse at a rate of 10 mEq/hr.(Same as: KCL) Start Date: 12/05/16 Stop Date: 12/05/16 Status: Voided With Results potassium chloride 20 mEq + lidocaine 2 mL + sodium chloride 0.9% INJ 250 mL Route: IV, Drug form: INJ, ONCE, Start date: 12/05/16 5:45:00 CDT, Stop date: 5:45:00 CDT Notes: MUST be Diluted before use(Same as: KCl) MEDICATION WASTE Product Size: 20 mEqProduct Wasted: ___ mEq Start Date: 12/05/16 Stop Date: 12/05/16 Status: Completed Protonix + sodium chloride 0.9% 10 ml INJ (PF) 10 mL 40 mg, Route: IVP, Before Breakfast, Dosing Weight 95, kg, Priority: NOW, Start date: 12/05/16 0:18:00 CDT, Duration: 30 day, Stop date: 01/03/17 7:30:00 CDT Notes: For IV push reconstitute with 10 ml 0.9% sodium chloride and push over 2 minutes. (Same as: Protonix) Start Date: 12/05/16 Stop Date: 12/05/16 Status: Discontinued Protonix 40 mg oral enteric coated tablet 40 mg=1 tab, PO, BID, Indication: Anastomotic gastric ulcer, # 60 tab, 0 Refill( s), Pharmacy: [facility]/pharmacy #[id number] Start Date: 12/06/16 Stop Date: 01/05/17 Status: Ordered PROzac 20 mg, 1 cap, Route: PO, Drug form: CAP, Daily, Dosing Weight 95, kg, Start date : 12/05/16 14:00:00 CDT, Duration: 30 day, Stop date: 01/04/17 9:00:00 CDT Notes: (Same as: Prozac, Sarafem) Start Date: 12/05/16 Stop Date: 12/06/16 Status: Discontinued sodium chloride 0.45% 1000 ml INJ 1,000 mL 1,000 mL, Rate: 100 ml/hr, Infuse over: 10 hr, Route: IV, Dosing Weight 95 kg, T otal Volume: 1,000, Start date: 12/05/16 3:10:00 CDT, Duration: 30 day, Stop shane e: 01/04/17 3:09:00 CDT Start Date: 12/05/16 Stop Date: 12/06/16 Status: Discontinued sodium chloride 0.9% 1000 ml INJ 1,000 mL 1,000 mL, Rate: 100 ml/hr, Infuse over: 10 hr, Route: IV, Dosing Weight 95 kg, T otal Volume: 1,000, Start date: 12/05/16 0:18:00 CDT, Duration: 30 day, Stop shane e: 01/04/17 0:17:00 CDT Start Date: 12/05/16 Stop Date: 12/05/16 Status: Discontinued Results BLOOD BANK RESULTS 1 2 3 Most recent to oldest [Reference Range]: A POS *Unknown* (12/05/16 1:44 AM) ABO/Rh Negative (12/05/16 1:44 AM) Antibody Scrn Product available 1 (12/05/16 1:26 AM) RBC product 1Result Comment: 12/05/2016 02:36 [id number] NOTIFIED JALEEL LAUREANO READY ELECTROLYTES 1 2 3 Most recent to oldest [Reference Range]: 145 mEq/L (12/06/16 7:50 AM) 145 mEq/L (12/06/16 7:50 AM) 147 mEq/L *HI* (12/05/16 12:52 AM) Sodium Lvl [135-145 mEq/L] 4.0 mEq/L (12/06/16 7:50 AM) 4.0 mEq/L (12/06/16 7:50 AM) 3.3 mEq/L *LOW* (12/05/16 12:52 AM) Potassium Lvl [3.5-5.1 mEq/L] 110 mEq/L *HI* (12/06/16 7:50 AM) 110 mEq/L *HI* (12/06/16 7:50 AM) 117 mEq/L *HI* (12/05/16 12:52 AM) Chloride Lvl [95-109 mEq/L] 26 mEq/L (12/06/16 7:50 AM) 26 mEq/L (12/06/16 7:50 AM) 22 mEq/L *LOW* (12/05/16 12:52 AM) CO2 [24-32 mEq/L] 13.0 mEq/L (12/06/16 7:50 AM) 13.0 mEq/L (12/06/16 7:50 AM) 11.3 mEq/L (12/05/16 12:52 AM) AGAP [10.0-20.0 mEq/L] CHEM PANEL 1 2 3 Most recent to oldest [Reference Range]: 0.79 mg/dL (12/06/16 7:50 AM) 0.79 mg/dL (12/06/16 7:50 AM) 0.56 mg/dL (12/05/16 12:52 AM) Creatinine Lvl [0.50-1.40 mg/dL] 93 mL/min/1.73m2 1 *NA* (12/06/16 7:50 AM) 93 mL/min/1.73m2 2 *NA* (12/06/16 7:50 AM) 116 mL/min/1.73m2 3 *NA* (12/05/16 12:52 AM) eGFR 6 mg/dL *LOW* (12/06/16 7:50 AM) 6 mg/dL *LOW* (12/06/16 7:50 AM) 14 mg/dL (12/05/16 12:52 AM) BUN [7-22 mg/dL] 8 (12/06/16 7:50 AM) B/C Ratio [6-25] 93 mg/dL (12/06/16 7:50 AM) 93 mg/dL (12/06/16 7:50 AM) 85 mg/dL (12/05/16 12:52 AM) Glucose Lvl [70-99 mg/dL] 5.5 g/dL *LOW* (12/06/16 7:50 AM) Total Protein [6.4-8.4 g/dL] 3.1 g/dL *LOW* (12/06/16 7:50 AM) Albumin Lvl [3.5-5.0 g/dL] 2.4 g/dL *LOW* (12/06/16 7:50 AM) Globulin [2.7-4.2 g/dL] 1.3 (12/06/16 7:50 AM) A/G Ratio [0.7-1.6] 8.0 mg/dL *LOW* (12/06/16 7:50 AM) 8.0 mg/dL *LOW* (12/06/16 7:50 AM) 6.6 mg/dL 4 *CRIT* (12/05/16 12:52 AM) Calcium Lvl [8.5-10.5 mg/dL] 1.8 mg/dL (12/06/16 7:50 AM) 2.1 mg/dL (12/05/16 8:59 AM) Magnesium Lvl [1.8-2.4 mg/dL] 12 unit/L (12/06/16 7:50 AM) ALT [0-65 unit/L] 10 unit/L (12/06/16 7:50 AM) AST [0-37 unit/L] 44 unit/L (12/06/16 7:50 AM) Alk Phos [39-136 unit/L] 1.7 mg/dL *HI* (12/06/16 7:50 AM) Bili Total [0.2-1.3 mg/dL] 0.3 mg/dL (12/06/16 7:50 AM) Bili Direct [0.0-0.3 mg/dL] 1Result Comment: The eGFR is calculated using [...] tiplied by the estimated BMI. 3Result Comment: The eGFR is calculated using the [...] be mul tiplied by the estimated BMI. 4Result Comment: Critical Result(s) called to siva at 12/05/2016 01:39 by pks. Read back OK. HEMATOLOGY 1 2 3 Most recent to oldest [Reference Range]: 5.5 K/CMM (12/06/16 7:50 AM) 6.2 K/CMM (12/05/16 8:48 PM) 6.1 K/CMM (12/05/16 12:52 AM) WBC [3.7-10.4 K/CMM] 3.19 M/CMM *LOW* (12/06/16 7:50 AM) 3.15 M/CMM *LOW* (12/05/16 8:48 PM) 2.31 M/CMM *LOW* (12/05/16 12:52 AM) RBC [4.20-5.40 M/CMM] 10.0 g/dL *LOW* (12/06/16 7:50 AM) 9.6 g/dL *LOW* (12/05/16 8:48 PM) 9.6 g/dL *LOW* (12/05/16 2:49 PM) Hgb [12.0-16.0 g/dL] 28.2 % *LOW* (12/06/16 7:50 AM) 27.9 % *LOW* (12/05/16 8:48 PM) 27.8 % *LOW* (12/05/16 2:49 PM) Hct [36.0-48.0 %] 88.6 fL (12/06/16 7:50 AM) 88.4 fL (12/05/16 8:48 PM) 89.5 fL (12/05/16 12:52 AM) MCV [80.0-98.0 fL] 31.4 pg *HI* (12/06/16 7:50 AM) 30.4 pg (12/05/16 8:48 PM) 30.8 pg (12/05/16 12:52 AM) MCH [27.0-31.0 pg] 35.4 g/dL (12/06/16 7:50 AM) 34.3 g/dL (12/05/16 8:48 PM) 34.4 g/dL (12/05/16 12:52 AM) MCHC [32.0-36.0 g/dL] 13.9 % (12/06/16 7:50 AM) 14.0 % (12/05/16 8:48 PM) 13.7 % (12/05/16 12:52 AM) RDW [11.5-14.5 %] 190 K/CMM (12/06/16 7:50 AM) 177 K/CMM (12/05/16 8:48 PM) 153 K/CMM (12/05/16 12:52 AM) Platelet [133-450 K/CMM] 10.0 fL (12/06/16 7:50 AM) 10.1 fL (12/05/16 8:48 PM) 10.2 fL (12/05/16 12:52 AM) MPV [7.4-10.4 fL] 54.8 % (12/06/16 7:50 AM) 45.6 % (12/05/16 8:48 PM) 56.5 % (12/05/16 12:52 AM) Segs [45.0-75.0 %] 35.8 % (12/06/16 7:50 AM) 44.6 % *HI* (12/05/16 8:48 PM) 36.9 % (12/05/16 12:52 AM) Lymphocytes [20.0-40.0 %] 5.8 % (12/06/16 7:50 AM) 6.3 % (12/05/16 8:48 PM) 4.5 % (12/05/16 12:52 AM) Monocytes [2.0-12.0 %] 2.5 % (12/06/16 7:50 AM) 2.6 % (12/05/16 8:48 PM) 1.6 % (12/05/16 12:52 AM) Eosinophils [0.0-4.0 %] 1.1 % *HI* (12/06/16 7:50 AM) 0.9 % (12/05/16 8:48 PM) 0.5 % (12/05/16 12:52 AM) Basophils [0.0-1.0 %] 3.0 K/CMM (12/06/16 7:50 AM) 2.9 K/CMM (12/05/16 8:48 PM) 3.4 K/CMM (12/05/16 12:52 AM) Segs-Bands # [1.5-8.1 K/CMM] 2.0 K/CMM (12/06/16 7:50 AM) 2.8 K/CMM (12/05/16 8:48 PM) 2.2 K/CMM (12/05/16 12:52 AM) Lymphocytes # [1.0-5.5 K/CMM] 0.3 K/CMM (12/06/16 7:50 AM) 0.4 K/CMM (12/05/16 8:48 PM) 0.3 K/CMM (12/05/16 12:52 AM) Monocytes # [0.0-0.8 K/CMM] 0.1 K/CMM (12/06/16 7:50 AM) 0.2 K/CMM (12/05/16 8:48 PM) 0.1 K/CMM (12/05/16 12:52 AM) Eosinophils # [0.0-0.5 K/CMM] 0.1 K/CMM (12/06/16 7:50 AM) 0.1 K/CMM (12/05/16 8:48 PM) Basophils # [0.0-0.2 K/CMM] Immunizations No data available for this section Procedures Procedure Date Related Diagnosis Body Site Silvia-en-y gastric bypass 2017 Arthroscopy of knee section Partial hysterectomy [place] tooth Social History Social History Type Response Substance Abuse Use: None. Alcohol Current, Type Wine. Frequency: 1-2 times per month. Smoking Status Never smoker; Exposure to Tobacco Smoke None; Cigarette Smoking Last 365 Days No; Reg Smoking Cessation Counseling No Assessment and Plan Extracted from: Title: Clinical Document Author: Dustin Zaragoza MD Date: 12/06/16 Progress Note - Daily [facility] Completed: Nov, 11:01 by Dustin Zaragoza MD RM: 510 - 00, [id number], KRIS M41y (: 1975) F Attending: Rosmery Luna MDPhone: Service: Internal Medicine Reason for Admission: SYNCOPE Working DRG: Syncope & collapse Code status: None Specified=FULL CODECurrent diet: Isolation: None Documented Allergies: NKDA SUBJECTIVE/ OBJECTIVE No events. Tolerating diet. Pain controlled. Ambulating well 24hr Labs 12/06 0750 Glucose Lvl93 BUN6 L Creatinine Lvl0.79 Sodium Hmu900 Potassium Lvl4.0 Chloride Olc036 H CO226 AGAP13.0 Calcium Lvl8.0 L eGFR93 Sodium Noc630 Potassium Lvl4.0 Chloride Pea567 H CO226 AGAP13.0 Glucose Lvl93 Creatinine Lvl0.79 BUN6 L B/C Ratio8 Total Protein5.5 L Albumin Lvl3.1 L Globulin2.4 L A/G Ratio1.3 Calcium Lvl8.0 L ALT12 AST10 Alk Phos44 Bili Total1.7 H eGFR93 Bili Direct0.3 Magnesium Lvl1.8 WBC5.5 RBC3.19 L Hgb10.0 L Hct28.2 L MCV88.6 MCH31.4 H MCHC35.4 RDW13.9 Hmfzpkrz340 MPV10.0 Segs54.8 Monocytes5.8 Abjdpudlesg15.8 Eosinophils2.5 Basophils1.1 H Segs-Bands #3.0 Lymphocytes #2.0 Monocytes #0.3 Eosinophils #0.1 Basophils #0.1 12/05 2048 WBC6.2 RBC3.15 L Hgb9.6 L Hct27.9 L MCV88.4 MCH30.4 MCHC34.3 RDW14.0 Jetprvej403 MPV10.1 Segs45.6 Monocytes6.3 Bwgvsxzsvji37.6 H Eosinophils2.6 Basophils0.9 Segs-Bands #2.9 Lymphocytes #2.8 Monocytes #0.4 Eosinophils #0.2 Basophils #0.1 12/05 1449 Hgb9.6 L Hct27.8 L Bust[place] still necessary (Yes/No): Line still necessary (Yes/No): VitalsTmp(F)TzespPXTEReU3DMR2 12/06 07:2498.262296/276673--- 12/06 04:0098.926031/248920--- 12/06 00:0097.793380/408303--- 12/05 20:0098.439908/5927601--- 12/05 18:45----67803/7520------ 24 Hr Tmax: 98.5F (36.94c) at 12/05 20:00Vital Signs are the last 5 in the past 48 hours. DateWt(kg)Wt(lb)Ht(cm)Ht(in)Method 12/04 (initial) 95.00 209.00Measured 67.64 66.00Stated I&ORecordInOutBal 11/2923hr Tot 10 0 10 11/2823hr Tot 1229 0849-9160 Medications (11) Active Scheduled Meds (3): 12/05/16 [...] 1,000 mL 1,000 mL 100 ml/hr ASSESSMENT & EXAM NAD RRR Soft, ND, NT PLAN & TREATMENT S/p lap RYGB with marginal ulcer bleed. HD stable. Plan cont carafate and protonix. Ready for Discharge (Yes/No)? TEACHING ATTESTATION
--- NOTE | 2019-01-06 14:36 | Operative Report ---
DATE OF PROCEDURE: 01/06/2019 SURGEON: Tin Phillips MD PREOPERATIVE DIAGNOSIS: Chronic cholecystitis. POSTOPERATIVE DIAGNOSES: Chronic cholecystitis. PROCEDURES: Diagnostic laparoscopy, laparoscopic cholecystectomy. SENIOR OPERATIONS ANALYST: None. ANESTHESIA: General endotracheal. INDICATIONS AND FINDINGS: The patient is a 43-year-old female, who presented with complaints of epigastric abdominal pain. Workup revealed abnormal HIDA scan with lower ejection fraction. Surgery based on gallbladder was distended with some changes of cholesterolosis. Cystic duct was about 2 mm in diameter. Common bile duct was about 5 mm in diameter. Liver, stomach, lower abdomen all appeared normal. TECHNIQUE: After adequate general endotracheal anesthesia with the patient in supine position, the abdomen was prepped and draped in sterile fashion with ChloraPrep solution. Skin in the umbilicus was infiltrated with 0.5% Marcaine. Incision made in the umbilicus, abdominal wall was elevated and Veress needle was introduced. Pneumoperitoneum was then created. A 10 mm trocar and cannula was then passed through the umbilical wound. Laparoscopic camera was introduced. Initial laparoscopy revealed the gallbladder to be distended. Liver appeared normal. Stomach that was seen appeared normal. A loop of bowel was coming from the stomach, consistent with her previous gastric bypass. Lower abdomen appeared normal. A 10 mm trocar and cannula was placed in epigastrium. Two 5 mm trocars and cannulas were placed in the right upper quadrant these were placed under direct vision. Fundus of the gallbladder was grasped, retracted superiorly. Neck of the gallbladder was grasped, retracted laterally. Peritoneum over the neck of the gallbladder was incised. The gallbladder cystic duct junction was dissected free. Cystic artery was also dissected free. The neck of the gallbladder completely dissected free. Cystic artery was divided between hemoclips close to the gallbladder. Cystic duct was also divided between hemoclips with three clips being left on the common bile duct side. The gallbladder was dissected free from the liver using scissors and electrocautery. Once it was entirely free, it was placed into an Endopouch and brought through the epigastric cannula. There were no stones palpable. Gallbladder bed was inspected for hemostasis which was seen to be adequate. It was irrigated with saline. All fluid aspirated, inspected once again for hemostasis which was seen to be adequate. Instruments and cannulas were then removed. Pneumoperitoneum was evacuated. Wounds were then closed. Fascia in the umbilical and epigastric closed with 0 Vicryl. Skin to all wounds closed with 4-0 Vicryl subcuticular fashion. Sterile dressings applied to each wound. The patient tolerated the procedure well. Estimated blood loss was 10 mL. There were no complications. All counts were correct and the patient was taken to the recovery room in satisfactory condition. MD ARGENTINA Barber/ADRY /[id number]
[2019-01-06 15:00] VITALS: BP 109/67
== END | disposition home or self-care (01) ==
LOC: OR 10:24
PROVIDERS: ATTEND Surgery
DX: K80.10 Calculus of gallbladder with chronic cholecystitis without obstruction (principal); Z01.812 Encounter for preprocedural laboratory examination; F32.9 Major depressive disorder, single episode, unspecified; F41.9 Anxiety disorder, unspecified; E03.9 Hypothyroidism, unspecified; Z88.8 Allergy status to other drugs, medicaments and biological substances; Z98.84 Bariatric surgery status
CPT/HCPCS: 36415; 47562; 80053; 85025; 88304; J0131; J0690; J1100; J1885; J2001; J2250; J2405; J2704; J2765; J3010; J3490

== ENCOUNTER → 2019-01-26 | Outpatient (CLI) | payer OTHER ==
[~2019-01-26] MED LIST changes: -ACETAMINOPHEN 1000 MG/100 ML IV ONE; -BUPIVACAINE HCL 0.5% INJ 30 ML VIAL INJ ONE; -CEFAZOLIN SOD 1 GM VIAL ONE; -DEXAMETHASONE SOD PHOS INJ 4 MG/ML VIAL ONE; -FENTANYL CITRATE/PF 100MCG/2 ML INJ ONE; -GLYCOPYRROLATE INJ 1MG/ 5 ML SYR ONE; -KETOROLAC TROMETHAMINE 30 MG/ML VIAL ONE; -LIDOCAINE HCL 2% LOCAL INJ 5 ML SDV VIAL INJ ONE; -METOCLOPRAMIDE HCL 10 MG/2ML VIAL ONE; -MIDAZOLAM HCL 2 MG/2 ML VIAL ONE; -NEOSTIGMINE 5 MG/5ML SYR ONE; -ONDANSETRON HCL INJ 2MG/ML 2ML 2 MG/ML VIAL ONE; -PROPOFOL IV EMULSION 10 MG/ML 20 ML VIAL ONE; -ROCURONIUM BROMIDE 10 MG/ML 5ML VIAL ONE; -SCOPOLAMINE 1.5 MG PATCH ONE; -SEVOFLURANE INHAL SOLN 250 ML PEN BTL ONE
--- NOTE | 2019-01-26 17:14 | Diagnostic Imaging Report ---
EXAM: CHEST 2 VIEWS DATE: 01/26/2019 9:55 AM INDICATION: TB screening COMPARISON: 01/21/2018 FINDINGS: The trachea is midline. The lungs are symmetrically expanded without evidence for large focal consolidation, pneumothorax, or significant pleural effusion. Calcified granuloma may be present within the left perihilar region. The cardiomediastinal silhouette is stable in appearance. No acute osseous abnormalities identified. IMPRESSION: No acute cardiopulmonary process identified. Specifically, no radiographic evidence for active TB. Signed by: Dr. Altaf Sanders MD on 01/26/2019 5:10 PM
== END ==
LOC: RAD 09:51
PROVIDERS: ATTEND Family Medicine
DX: Z11.1 Encounter for screening for respiratory tuberculosis (principal)
CPT/HCPCS: 71046

== ENCOUNTER → 2020-01-13 | Outpatient (CLI) | payer OTHER ==
--- NOTE | 2020-01-13 16:42 | Diagnostic Imaging Report ---
Exam: CHEST 2 VIEWS Date: 01/13/2020 4:37 PM INDICATION: ^TB SCREENING Comparison: 01/26/2019 FINDINGS: Lines/Tubes:None Lungs:The lungs are well inflated. No focal consolidation or pulmonary edema. Pleura:No pleural effusion. No pneumothorax. Heart/Mediastinum:The cardiomediastinal silhouette is normal in size and contour. Bones/Soft Tissues: No acute osseous abnormality. Mild multilevel degenerative changes are noted. Upper abdomen: Surgical clips are identified in the right upper quadrant, likely related to cholecystectomy. IMPRESSION: No radiographic evidence of active tuberculosis infection. Signed by: Bong Ramirez MD on 01/13/2020 4:39 PM
== END ==
LOC: RAD 16:12
PROVIDERS: ATTEND Family Medicine
DX: Z11.1 Encounter for screening for respiratory tuberculosis (principal)
CPT/HCPCS: 71046

== ENCOUNTER → 2020-12-27 | Outpatient (CLI) | payer OTHER | LOC: RAD 09:22 | PROVIDERS: ATTEND Family Medicine | DX: Z11.1 Encounter for screening for respiratory tuberculosis (principal) | CPT/HCPCS: 71046 ==